=== PATIENT | male | born 1965 | race Caucasian/White ===

== ENCOUNTER 2021-02-16 18:24 | Emergency (ER) | payer OTHER, SELFPAY ==
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
[2021-02-16 18:28] VITALS: BP 130/90; PULSE 73; RESP 16; TEMP 36.6; O2SAT 98; BMI 27.3
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
[2021-02-16 19:01] VITALS: PULSE 69; RESP 25; O2SAT 96
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
[2021-02-16 19:22] LABS: MANUAL DIFF FLAG NO
[2021-02-16] MEDS: dexAMETHasone sod phosphate 10 MG/ML VIAL IVPUSH (19:22)
[2021-02-16] MEDS: Diphth,Pertus(ACell),Tet Adult 0.5 ML SYRINGE IM (19:22)
[2021-02-16] MEDS: Morphine Sulfate 4 MG/ML CARTRIDGE IVPUSH (19:23)
[2021-02-16] MEDS: Ketorolac Tromethamine 15 MG/ML VIAL IVPUSH (19:23)
[2021-02-16 19:25] LABS: Basophils Percent Auto 0.2 % (0-2); Eosinophils Absolute Auto 0.2 X10*3/uL (0.0-0.4); Eosinophils Percent Auto 0.9 % (0-4); Hematocrit 45.4 % (42-52); Hemoglobin 15.8 g/dl (14.0-18.0); Imm Gran Abs Auto 0.26 X10*3/uL (0.00-0.03); Imm Gran Pct Auto 1.5 % (0.0-0.4); Lymphocytes Absolute Auto 2.7 X10*3/uL (1.2-4.9); Lymphocytes Percent Auto 14.9 % (20-40); Mean Corpuscular HGB Conc 34.8 g/dl (31.0-36.0); Mean Corpuscular Hemoglobin 32.2 pg (27.0-33.0); Mean Corpuscular Volume 92.7 fL (80-98); Mean Platelet Volume 9.3 fL (9.4-12.4); Monocytes Percent Auto 5.5 % (2-11); Neutrophils Absolute Auto 13.7 X10*3/uL (2.0-8.3); Platelet Count 332 X10*3/uL (160-400); Red Cell Distribution Width 12.6 % (11.0-16.0); White Blood Count 17.7 X10*3/uL (4.8-10.8)
[2021-02-16 19:39] LABS: Anion Gap 16 (12-20); Blood Urea Nitrogen 8 mg/dL (9-16); Carbon Dioxide 21 mmol/L (22-29); Chloride 101 mmol/L (96-108); Creatinine Clr Calc Pharmacy 99.1; Estimated Glomerular Filt Rate > 60; Glucose Random 111 mg/dL (60-115); Sodium 134 mmol/L (135-145)
[2021-02-16 19:44] LABS: Troponin-I High Sensitivity < 3.5 ng/L (<3.5-35.0)
[2021-02-16 21:00] VITALS: RESP 18; O2SAT 97
[2021-02-16] MEDS: Morphine Sulfate ER 15 MG TABLET.ER PO (21:31)
== END 2021-02-16 21:51 | disposition home or self-care (01) ==
PROVIDERS: Emergency Provider Student in an Organized Health Care Education/Training Program; PCP Internal Medicine
DX: S39.92XA Unspecified injury of lower back, initial encounter (principal); S22.079A Unspecified fracture of T9-T10 vertebra, initial encounter for closed fracture; S22.049A Unspecified fracture of fourth thoracic vertebra, initial encounter for closed fracture; G44.309 Post-traumatic headache, unspecified, not intractable; M54.2 Cervicalgia; V29.40XA Motorcycle driver injured in collision with unspecified motor vehicles in traffic accident, initial encounter; Y93.9 Activity, unspecified; Y92.410 Unspecified street and highway as the place of occurrence of the external cause; Y99.9 Unspecified external cause status; Z79.899 Other long term (current) drug therapy
CPT/HCPCS: 36415; 70450; 71045; 72125; 72128; 72131; 80048; 84484; 85025; 90471; 90715; 93005; 96374; 96375; 99284; J1100; J1885; J2270

== ENCOUNTER 2024-08-21 08:26 | Outpatient (AMB) | payer OTHER, SELFPAY ==
--- OUTSIDE RECORDS SUMMARY | 2024-08-21 08:54 | XMS_ITS | Clinical Summary ---
Author Organization [facility] Address [address] [place] [address] Care Team Providers Care Film Writer Name Role Phone Unavailable Primary Care Provider Unavailabl e Social History Tobacco Use Types Packs/Day Years Used Date Smoking Tobacco: Never Assessed Sex and Gender Information Value Date Recorded Sex Assigned at Not on file Gender Identity Not on file Sexual Orientation Not on file Plan of Treatment Health Maintenance Due Date Last Done Comments Hepatitis C Virus Screening 1965 HIV Screening 11/15/1976 DTaP/Tdap/Td Vaccines (1 - Tdap) 11/15/1982 Pneumococcal Vaccines 50+ (1 of 1 - PCV) 11/15/2013 Zoster (Shingles) Vaccine (1 of 2) 11/15/2013 COVID-19 Vaccine ( - 2023-2 5 season) 2024 RSV Vaccine 60 years and old er and Patients (1 - 1-dose 75+ series) 11/15/2038 Hepatitis B Vaccines Aged Out No long er eligible based on patient's age to complete this topic Pneumococcal Vaccine: Pediat melchor (0-5 Years) and At-Risk Patients (6 to 49 Years) Aged Out No longer eligible b ased on patient's age to complete this topic
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
[2024-08-21 09:05] VITALS: BP 150/92; PULSE 66; TEMP 36.3; O2SAT 97; BMI 28.8
== END 2024-08-21 09:49 | disposition home or self-care (01) ==
LOC: HO.HMCH 08:26
PROVIDERS: PCP Internal Medicine
DX: Z72.0 Tobacco use (principal); I10 Essential (primary) hypertension; Z13.220 Encounter for screening for lipoid disorders; S91.302A Unspecified open wound, left foot, initial encounter; Z13.1 Encounter for screening for diabetes mellitus

== ENCOUNTER 2024-08-21 08:26 | Outpatient (REF) | payer OTHER, SELFPAY ==
--- NOTE | ~2024-08-21 | XR_ITS ---
EXAMINATION: XR FOOT 1-2 VIEWS LEFT HISTORY: S91.302A - Unspecified open wound, left foot, initial encounter COMPARISON: Comparison is made with the prior examination dated 03/16/2014. FINDINGS: Three views of the left foot are submitted. The bones are osteopenic. The patient is again noted to be status post internal fixation of the 1st metatarsal shaft. Additional screws are seen across the 1st and 2nd tarsometatarsal joints. There is a soft tissue defect overlying the calcaneus. Multiple lucencies are noted in the posterior calcaneus suggestive of osteomyelitis. However, these findings were also present on the prior study. There is moderate degenerative change of the MTP joints. XR/XR foot LT 2V IMPRESSION: Soft tissue defect overlying the calcaneus. Multiple lucencies in the posterior calcaneus suggestive of osteomyelitis. As these findings were also present on the prior study, it is difficult to determine whether this represents an acute or chronic process. Electronically signed by: Brent Ferreira MD 08/21/2024 10:55 AM EDT
--- OUTSIDE RECORDS SUMMARY | 2024-08-21 12:47 | XMS_ITS | Clinical Summary ---
Author Organization [facility] ity Address [address] [place] [address] Care Team Providers Care Mail Deliverer Name Role Phone Unavailable Primary Care Provider Unavailabl e Social History Tobacco Use Types Packs/Day Years Used Date Smoking Tobacco: Never Assessed Sex and Gender Information Value Date Recorded Sex Assigned at Not on file Legal Sex Male 3:26 PM EST Gender Identity Not on file Sexual Orientation Not on file Plan of Treatment Health Maintenance Due Date Last Done Comments DTaP,Tdap,and Td Vaccines (1 - Tdap) 11/15/1982 Pneumococcal Vaccine: 50+ Ye ars (1 of 1 - PCV) 11/15/2013 Zoster Vaccines (1 of 2) 11/15/2013 COVID-19 Vaccine (1 - 2023-2 5 season) 2024 Influenza Vaccine (#1) 2024 RSV Immunization Patients 60 + Years Old (1 - 1-dose 75+ series) 11/15/2038 HIB Vaccines Aged Out No longer eligi ble based on patient's age to complete this topic HPV Vaccines Aged Out No longer eligi ble based on patient's age to complete this topic Hepatitis A Vaccines Aged Out No long er eligible based on patient's age to complete this topic Hepatitis B Vaccines Aged Out No long er eligible based on patient's age to complete this topic IPV Vaccines Aged Out No longer eligi ble based on patient's age to complete this topic MMR Vaccines Aged Out No longer eligi ble based on patient's age to complete this topic Meningococcal ACWY Vaccine Aged Out N o longer eligible based on patient's age to complete this topic Meningococcal B Vacine Aged Out No lo nger eligible based on patient's age to complete this topic Pneumococcal Vaccine: Pediat rics (0 to 5 Years) and At-Risk Patients (6 to 64 Years) Aged Out No longer eligible b ased on patient's age to complete this topic RSV Immunization Patients Un hortensia 20 months Aged Out No longer eligible b ased on patient's age to complete this topic Varicella Vaccines Aged Out No longer eligible based on patient's age to complete this topic
--- OUTSIDE RECORDS SUMMARY | 2024-08-21 12:47 | XMS_ITS | Clinical Summary ---
Author Organization [facility] Address [address] [place] [address] Care Team Providers Care C Unix Developer Name Role Phone Unavailable Primary Care Provider [...]
== END 2024-08-21 08:27 | disposition home or self-care (01) ==
LOC: HO.XRAY 08:26
PROVIDERS: PCP Internal Medicine
DX: S91.302A Unspecified open wound, left foot, initial encounter (principal); I10 Essential (primary) hypertension; Z72.0 Tobacco use
CPT/HCPCS: 73620

== ENCOUNTER → 2024-08-21 10:12 | Outpatient (BNV) | payer OTHER, SELFPAY | PROVIDERS: PCP Internal Medicine; Visit Provider Radiology Diagnostic Radiology | DX: M86.172 Other acute osteomyelitis, left ankle and foot (principal) | CPT/HCPCS: 73620 ==

== ENCOUNTER 2024-08-22 10:58 | Outpatient (REF) | payer OTHER, SELFPAY ==
[2024-08-22 11:24] LABS: MANUAL DIFF FLAG NO
[2024-08-22 12:09] LABS: Basophils Percent Auto 0.4 % (0-2); Eosinophils Absolute Auto 0.2 X10*3/uL (0.0-0.4); Eosinophils Percent Auto 1.4 % (0-4); Hematocrit 45.9 % (42.0-52.0); Hemoglobin 15.9 g/dl (14.0-18.0); Imm Gran Abs Auto 0.06 X10*3/uL (0.00-0.03); Imm Gran Pct Auto 0.6 % (0.0-0.4); Lymphocytes Absolute Auto 2.6 X10*3/uL (1.2-4.9); Lymphocytes Percent Auto 24.4 % (20-40); Mean Corpuscular HGB Conc 34.6 g/dl (31.0-36.0); Mean Corpuscular Hemoglobin 31.4 pg (27.0-33.0); Mean Corpuscular Volume 90.5 fL (80.0-98.0); Mean Platelet Volume 9.5 fL (9.4-12.4); Monocytes Absolute Auto 0.8 X10*3/uL (0.1-1.2); Monocytes Percent Auto 7.6 % (2-11); Neutrophils Percent Auto 65.6 % (45-73); Platelet Count 423 X10*3/uL (160-400); Red Blood Count 5.07 X10*6/uL (4.60-5.80); Red Cell Distribution Width 12.8 % (11.0-16.0); White Blood Count 10.6 X10*3/uL (4.8-10.8)
[2024-08-22 12:15] LABS: Estimated Average Glucose 105 mg/dL; Hemoglobin A1c % 5.3 % (<6.0)
[2024-08-22 12:54] LABS: Alanine Aminotransferase 17 U/L (0-40); Albumin Level 4.2 g/dL (3.5-5.0); Alkaline Phosphatase 79 U/L (39-117); Anion Gap 10 (12-20); Aspartate Amino Transferase 22 U/L (5-37); Bilirubin Total 0.4 mg/dL (0.0-1.0); Blood Urea Nitrogen 12 mg/dL (9-16); Calcium 9.4 mg/dL (8.4-10.2); Carbon Dioxide 26 mmol/L (22-29); Chloride 105 mmol/L (96-108); Cholesterol 207 mg/dL (<200); Estimated Glomerular Filt Rate > 60; Glucose Random 100 mg/dL (60-115); HDL Cholesterol 86 mg/dL (>40); LDL Cholesterol Calculated 109 mg/dL (<100); Potassium 3.9 mmol/L (3.3-5.1); Sodium 137 mmol/L (135-145); Total Protein 8.1 g/dL (6.5-8.0); Triglycerides 64 mg/dL (<150)
[2024-08-22 13:00] LABS: Free T4 (Free Thyroxine) 0.95 ng/dL (0.71-1.85); TSH reflex Free T4 1.54 uIU/mL (0.32-4.0); Vitamin D 25-OH Total 10.8 ng/mL (>30)
[2024-08-22 13:12] LABS: Folate 6.1 ng/mL (> or = 4.0); Vitamin B12 814 pg/mL (200-900)
== END 2024-08-22 10:59 | disposition home or self-care (01) ==
LOC: HO.LAB 10:58
DX: Z00.00 Encounter for general adult medical examination without abnormal findings (principal); Z13.220 Encounter for screening for lipoid disorders; Z13.1 Encounter for screening for diabetes mellitus; Z13.6 Encounter for screening for cardiovascular disorders
CPT/HCPCS: 36415; 80053; 80061; 82306; 82607; 82746; 83036; 84439; 84443; 85025

== ENCOUNTER 2024-08-25 14:45 | Outpatient (AMB) | payer OTHER, SELFPAY ==
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
[2024-08-25 15:06] VITALS: BP 146/83; PULSE 82; TEMP 36.9; O2SAT 96; BMI 30.1
--- OUTSIDE RECORDS SUMMARY | 2024-08-25 16:40 | XMS_ITS | Clinical Summary ---
Author Organization [facility] Address [address] [place] [address] Care Team Providers Care Supervisor Accounting Clerks Name Role Phone Unavailable Primary Care Provider [...]
--- OUTSIDE RECORDS SUMMARY | 2024-08-25 16:40 | XMS_ITS | Clinical Summary ---
Author Organization [facility] ity Address [address] [place] [address] Care Team Providers Care Window Shade Cutter And Mounter Name Role Phone Unavailable Primary Care Provider [...]
== END 2024-08-25 15:36 | disposition home or self-care (01) ==
LOC: HO.HID 14:46
PROVIDERS: Visit Provider Internal Medicine
DX: M86.60 Other chronic osteomyelitis, unspecified site (principal); S91.302A Unspecified open wound, left foot, initial encounter
CPT/HCPCS: 99204

== ENCOUNTER → 2024-08-25 14:45 | Outpatient (BNVA) | payer OTHER, SELFPAY | PROVIDERS: Visit Provider Internal Medicine ==

== ENCOUNTER 2024-09-04 15:19 | Outpatient (AMB) | payer OTHER, SELFPAY ==
--- NOTE | 2024-09-04 15:21 | A.OFFPC_ITS ---
Vital Signs 3 09/04/24 15:22 09/04/24 15:51 Height 5 ft 5 in Weight 178 lb 3.2 oz BMI 29.7 BP 142/84 H 130/82 Blood Pressure Location Lt brachial Lt brachial Position Sitting Sitting Respiration 16 Pulse 71 Pulse Source Pulse Oximeter Temp 97.3 F Temp Source Temporal Artery Scan Pulse Oximetry (%) 98 Oxygen Delivery Method Room Air Intake Visit Reasons: f/u foot infection Private Duty Rn Required: No Accompanied by: Self / Same As Patient Allergies No Known Allergies [No Known Allergies*] Allergy (Verified 09/04/24 15:22) Medication List - Last Reconciled 09/04/24 by Marian Vang PA-C doxycycline hyclate 100 mg PO BID 30 days losartan 25 mg PO DAILY Tobacco use date assessed: 09/04/24 Dental Screening Dental Screen Date: 09/04/24 Did you have a dental visit in the last 12 months?: No Did you have a dental problem in the last 6 months where you did not have access to dental care?: No Was dental information given to patient?: No HPI f/u foot infection 2 HPI0 Details 58-year-old male with past medical histo ry of tobacco abuse, hypertension and chronic osteomyelitis last seen 07/2024 coming in for follow up on foot wound. Patient was seen by [facility] Infectious Disease for 05/2024 advised to continue on doxycycline indefinitely and follow up with Orthopedics to consider amputation. Presenting with osteomyelitis. Osteomyelitis is ongoing, confirmed to be present, and causing continued complications, potentially requiring surgical intervention, such as orthopedic or general surgery consultation. Antibiotics were previously administered, leading to some improvement in the infection symptoms but continuous concern about underlying bone infection persists. The patient expressed concern about effectively managing blood pressure in the context of the current health setting, noting a current plan requiring medication refills. 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 Cognitive needs: No Hearing needs: No Vision needs: Yes (Glasses) Questionnaire Thrive Questionnaire Date Thrive assessed: 09/04/24 I am a: Patient What is your living situation today?: I have a steady place to live Within the past 12 months, did the food you bought not last and you didn't have the money to get more?: Never true Within the past 12 months, did you worry whether your food would run out before you got money to buy more?: Never true Do you have trouble paying for medicines?: No Do you have trouble getting transportation to medical appointments?: No Do you have trouble paying your heating and electricity bill?: No Do you have trouble taking care of your child, family member or friend?: No Do you have trouble with day-to-day activities such as bathing, preparing meals, shopping, managing finances, etc.?: No Are you currently unemployed and looking for a job?: No Are you interested in more education?: No Please select the resources that you would like help with: None Currently or been in a relationship where the following occur: No concerns reported THRIVE Score: 0 AUDIT C Alcohol Use Questionnaire (AUDIT-C) 1. How often do you have a drink containing alcohol?: 2-3 times a week 2. How many drinks containing alcohol do you have on a typical day when you are drinking?: 1 or 2 3. How often do you have six or more drinks on one occasion?: Less than monthly Total Score: 4 Score Reviewed/Action Taken: Yes JOLIE-7 AMB Questionnaire JOLIE-7 Date JOILE - 7 assessed: 08/21/24 Source: Developed by Drs. Brent Garcia, Amaya Maddox, Diogenes Ely and colleagues, with an educational destiny from [employer]. Review of Systems Const Denies body aches, Denies chills, Denies fever(s), Denies headache(s) and Denies poor appetite Eyes Reports no additional complaints ENT Denies dizziness and Denies headache(s) Card Denies chest pain and Denies dyspnea Resp Denies cough and Denies dyspnea GI Denies diarrhea, Denies nausea and Denies vomiting Reports no additional complaints Musc Details: heel pain has been improving Reports no additional complaints and Denies abnormal gait Skin/Breast Reports system reviewed and no additional complaints, except as documented Neuro Denies abnormal gait, Denies dizziness and Denies headache(s) Psych Reports no additional complaints Physical exam (Primary Care) Vital Signs: Last Vital Signs Temp 97.3 F 09/04/24 15:22 Pulse 71 09/04/24 15:22 Resp 16 09/04/24 15:22 BP 130/82 09/04/24 15:51 Pulse Ox 98 09/04/24 15:22 Oxygen Delivery Method Room Air 09/04/24 15:22 BMI result Body Mass Index 29.7 Tobacco/Smoking Status: Tobacco use Status Tobacco use date assessed 09/04/24 09/04/24 15:23 Patient Tobacco Use Status Current everyday Tobacco 09/04/24 15:23 Tobacco use type Cigarette 09/04/24 15:23 e-Cigarette/Vaping Use Never Used 09/04/24 15:23 Thrive Assessment: Date of Thrive Assessment Date Thrive assessed 09/04/24 09/04/24 15:29 Currently or been in a relationship where the following occur: No concerns reported Const General: cooperative, healthy appearing, comfortable and no acute distress Orientation/consciousness: patient oriented x3 HENMT Head: Yes normocephalic Ears: hearing grossly normal bilaterally General nose exam: Normal external nose present Eyes General: appearance normal, both eyes and all related structures Conjunctivae: conjunctivae normal Neck Neck: Yes full ROM and Yes no lymphadenopathy Resp Effort & Inspection: normal respiratory effort Auscultation: clear to auscultation bilaterally, no crackles, no rales, no rhonchi and no wheezes Cardio Rate: regular rate Rhythm: regular rhythm Skin Other: General skin exam: no rashes or lesions noted Neuro General: patient oriented x3 Gait exam (Neuro): Normal gait present Extrem General: Yes normal to inspection, Yes full ROM and No edema Psych Affect: normal affect Attitude: cooperative Insight: Good insight present (Psych) Judgement: Good judgement present (Psych) Coding Level of Care Code Est Pt Level 3 (69054) Diagnoses Chronic osteomyelitis M86.60 Hypertension I10 Assessment & Plan Assessment & Plan (1) Chronic osteomyelitis: Comment: He has chronic OM for many years, MSSA found Code(s): M86.60 - Other chronic osteomyelitis, unspecified site Category: Medical Plan: Patient was seen by infectious disease and was continued on Doxycycline indefinitely and advised orthopedic referral. I reached out to ortho who felt general surgery would be more appropriate. Referral was placed to general surgery today for evaluation and treatment. Patient has been seeing improvement in his pain and I advised patient to still have consultation as the root of the problem would not be treated by Doxycycline alone. Patient agrees to follow up with surgery. (2) Hypertension: Comment: restricted DOT Code(s): I10 - Essential (primary) hypertension Category: Medical Plan: Continue on current blood pressure medication. Avoid salt intake and encourage healthy diet and regular exercise. Blood pressure significantly improved continue on the losartan at this time Plan The focus is on managing osteomyelitis and optimizing blood pressure control. The importance of surgical consultation and intervention for osteomyelitis was stressed as antibiotics alone may not suffice. Proper referral to general or orthopedic surgery was discussed for potential surgical debridement of infected bone tissue, which could improve long-term outcomes and prevent recurrence. For hypertension, medication adjustments were considered, with close monitoring suggested to determine efficacy. The patient is advised to regularly check blood pressure at home to inform future treatment adjustments. Follow-up consultations will help maintain optimal control and address any issues promptly. This note was constructed using voice recognition software. While every effort has been made to ensure accuracy and piledriver carpenter, still areas may have been included sometimes these areas may affect the content or meeting of the given symptoms. Total time spent caring for the patient today was 20 minutes. This includes time spent before the visit reviewing the chart, time spent during the visit, and time spent after the visit and documentation. Patient was informed and verbally consented to the use of an ambient scribe for clinic note documentation during this visit. Orders: Referrals 2 General Surgery Referral M86.60 - Other chronic osteomyelitis, unspecified site Medications: Refilled 2 losartan 25 mg PO DAILY 90 tabs 3RF
[2024-09-04 15:22] VITALS: BP 142/84; PULSE 71; RESP 16; TEMP 36.3; O2SAT 98; BMI 29.7
[2024-09-04 15:51] VITALS: BP 130/82
--- OUTSIDE RECORDS SUMMARY | 2024-09-04 17:42 | XMS_ITS | Clinical Summary ---
Author Organization [facility] it[facility] Address [address] [place] [address] Care Team Providers Care Pci Security Consultant Name Role Phone Unavailable Primary Care Provider [...] Vaccines (1 of 2) 11/15/2013 COVID-19 Vaccine ( - 2023-2 5 season) 2024 Influenza Vaccine (Season Ended) 2025 RSV Immunization Adult Patie nts (1 - 1-dose 75+ series) 11/15/2038 HIB [...] age to complete this topic Meningococcal B Vaccine Aged Out No l onger eligible based on patient's age to complete [...]
--- OUTSIDE RECORDS SUMMARY | 2024-09-04 17:42 | XMS_ITS | Clinical Summary ---
Author Organization [facility] Address [address] [place] [address] Care Team Providers Care Hoof Trimmer Name Role Phone Unavailable Primary Care Provider [...]
== END 2024-09-04 15:54 | disposition home or self-care (01) ==
LOC: HO.HMCH 15:20
DX: M86.60 Other chronic osteomyelitis, unspecified site (principal); I10 Essential (primary) hypertension

== ENCOUNTER 2024-09-08 14:38 | Outpatient (AMB) | payer OTHER, SELFPAY ==
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
[2024-09-08 14:53] VITALS: BP 158/73; PULSE 67; BMI 28.4
--- OUTSIDE RECORDS SUMMARY | 2024-09-08 17:08 | XMS_ITS | Clinical Summary ---
Author Organization [facility] Address [address] [place] [address] Care Team Providers Care Brusher Operator Name Role Phone Unavailable Primary Care Provider [...]
--- OUTSIDE RECORDS SUMMARY | 2024-09-08 17:08 | XMS_ITS | Clinical Summary ---
Author Organization [facility] ity Address [address] [place] [address] Care Team Providers Care Quality Assurance Project Manager Name Role Phone Unavailable Primary Care Provider [...]
== END 2024-09-08 15:08 | disposition home or self-care (01) ==
LOC: HO.HGS 14:38
PROVIDERS: Visit Provider Surgery
DX: M86.60 Other chronic osteomyelitis, unspecified site (principal)
CPT/HCPCS: 99203

== ENCOUNTER → 2024-09-08 14:38 | Outpatient (BNVA) | payer OTHER, SELFPAY | PROVIDERS: Visit Provider Surgery ==

== ENCOUNTER 2024-09-13 07:43 | Outpatient (REF) | payer OTHER, SELFPAY ==
--- NOTE | ~2024-09-13 | XR_ITS ---
EXAMINATION: XR TIBIA AND FIBULA, LEFT CLINICAL INFORMATION: Chronic osteomyelitis of unspecified site. Check for hardware in the tibia. COMPARISON: 08/21/2024 left foot radiographs. TECHNIQUE: AP and lateral views of the left tibia and fibula were obtained. FINDINGS: There are old screw tracts present within the proximal, mid, and distal tibia, from old fixation hardware. Healed fractures of the mid diaphyses of the fibula and tibia, with abundant periosteal new bone formation bridging the fracture gaps. No permeative bone change evident proximally or in the mid aspect of the fracture levels. There is a soft tissue defect in the dorsal calcaneus, without definite permeative changes of the calcaneus, although this is incompletely imaged in this region. Soft tissue emphysema does not extend more cephalad. XR/XR tibia fibula LT 2V IMPRESSION: 1. Soft tissue defect in the dorsal calcaneus, without definite permeative changes of the calcaneus on this single lateral view. 2. More proximally, no suspicious permeative bone changes. Old hardware tracts in the tibia. 3. Healed fractures of the mid tibial and fibular diaphyses. Electronically signed by: Blayne Hammond MD 09/16/2024 09:27 AM EDT
== END 2024-09-13 07:44 | disposition home or self-care (01) ==
LOC: HO.XRAY 07:43
PROVIDERS: Visit Provider Surgery
DX: Z98.890 Other specified postprocedural states (principal); M86.60 Other chronic osteomyelitis, unspecified site
CPT/HCPCS: 73590

== ENCOUNTER → 2024-09-13 07:51 | Outpatient (BNV) | payer OTHER, SELFPAY | PROVIDERS: Visit Provider Radiology Diagnostic Radiology | DX: M79.89 Other specified soft tissue disorders (principal) | CPT/HCPCS: 73590 ==

== ENCOUNTER 2024-10-14 09:53 | Inpatient (IN) | payer OTHER, SELFPAY ==
--- OUTSIDE RECORDS SUMMARY | 2024-09-12 12:28 | XMS_ITS | Clinical Summary ---
Author Organization [facility] Address [address] [place] [address] Care Team Providers Care Professor Of Religious Studies Name Role Phone Unavailable Primary Care Provider Unavailabl e Social History Tobacco Use Types Packs/Day Years Used Date Smoking Tobacco: Never Assessed Sex and Gender Information Value Date Recorded Sex Assigned at Not on file Legal Sex Male 3:25 PM EDT Gender Identity Not on file Sexual Orientation [...]
--- OUTSIDE RECORDS SUMMARY | 2024-09-12 12:28 | XMS_ITS | Clinical Summary ---
Author Organization [facility] ity Address [address] [place] [address] Care Team Providers Care Development Expert Name Role Phone Unavailable Primary Care Provider [...]
[2024-10-10 12:20] VITALS: BMI 28.3
--- NOTE | 2024-10-10 13:49 | HO.ANESPROP2 ---
Documented by User: Brenda Callahan NP 10/13/24 11:47 HPI - Anesthesia Eval Consult details Narrative: 58yo M for Left Leg Amputation Below Knee -Osteomyelitis Smoker Daily ETOH PMFSH Active Problems Active Problems: All Active Problems Chronic osteomyelitis (Acute) Screening for diabetes mellitus (Acute) Wound of left foot (Acute) Screening for hypercholesterolemia (Acute) Hypertension (Acute) Tobacco abuse (Acute) Past Medical History Medical History Compression fracture of body of thoracic vertebra Brain aneurysm Surgical History Surgical History History of foot surgery Social History Social History Housing: Apartment Are you a primary medicare nurse to a significant other at home: No Do you presently have visiting nurse or other home services: No Alcohol intake: current Alcohol intake frequency: 0-2 drinks per day Patient Tobacco Use Status: Current everyday Tobacco user Tobacco use type: Cigarette Cigarette Packs Per Day: 0.5 Cigarettes Per Day: 10 Years Smoked: 40 years e-Cigarette/Vaping Use: Never Used Patient Interested in Nicotine Replacement: No Second Hand Smoke Exposure: Yes Use of substances other than those prescribed or required for medical reasons: Yes Substance Use Frequency: Daily Have you been hit, kicked, punched, or otherwise hurt by someone within the past year? 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 No acute intracranial pathology. 2. No CT evidence of acute cervical spine fracture or traumatic subluxation Assessment and Plan Assessment Anesthesia Assessment: Chart Reviewed Documented by User: Jace Solis MD 10/14/24 09:57 PMFSH Past Medical History Medical History Compression fracture of body of thoracic vertebra Brain aneurysm Family History Family history of problems with anesthesia: No Surgical History Surgical History History of foot surgery History of Problems with Anesthesia: No Social History Social History Housing: Apartment Are you a primary medicare nurse to a significant other at home: No Do you presently have visiting nurse or other home services: No Alcohol intake: current Alcohol intake frequency: 0-2 drinks per day Patient Tobacco Use Status: Current everyday Tobacco user Tobacco use type: Cigarette Cigarette Packs Per Day: 0.5 Cigarettes Per Day: 10 Years Smoked: 40 years e-Cigarette/Vaping Use: Never Used Patient Interested in Nicotine Replacement: No Second Hand Smoke Exposure: Yes Use of substances other than those prescribed or required for medical reasons: Yes Substance Use Frequency: Daily Have you been hit, kicked, punched, or otherwise hurt by someone within the past year? 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 Cognitive needs: No Hearing needs: No Vision needs: Yes (Glasses) Meds Allergies Allergy/AdvReac Type Severity Reaction Status Date / Time No Known Allergies Allergy Verified 10/14/24 08:41 [No Known Allergies*] Exam Airway Mallampati Class: III TM Dist: >3cm Neck ROM: Full Loose/Missing/Broken Teeth: Yes, Upper and Lower Assessment and Plan Assessment Anesthesia Assessment: Anesthesia Plan Discussed Final Anesthetic Review Family History of Problems with Anesthesia: No History of Problems with Anesthesia: No NPO: Yes ASA Class: III Final Preanesthetic Review: No Changes in Pt Med Stat, Meds/Allgs Chart Reviewed, Consent Obtained/Reviewed and Anes Risks/Benef Reviewed Patient Risk: Intermediate Procedure Risk: Intermediate Anesthetic Plan Anesthetic Plan: Spinal Disposition: Standard PACU
[2024-10-14] VITALS (13 sets, daily range): BP systolic 103–182; BP diastolic 57–92; PULSE 54–73; RESP 10–18; TEMP 36.4–37.1; O2SAT 95–98; BMI 26.8; BMI 29.3
[2024-10-14] MEDS: Lactated Ringers 1,000 ML 100 ML IVCONT ×2 (09:17→14:07)
--- NOTE | 2024-10-14 09:54 | MHC.SHP ---
Pre-Procedural Eval Section A - 24 Hr Update-Section A only Date of Service: 10/14/24 Section B - Complete if H&P > 30 days Chief Complaint: Other chronic osteomyelitis, unspecified site Details of Present Illness: Has had chronic osteomyelitis of the left heel, with pain, now wants to proceed with BKA Relevant Family History (Specify if Yes): No Relevant Social History: Tobacco Use Present Medications: see Short Stay Collaborative assessment Medical History: Significant History (Hypertension, smoking) History of Previous Operations: Relevant previous surgery/procedure and date(s) (Has a previous trauma to the left lower leg with fixation) Allergies: Allergies Allergy/AdvReac Type Severity Reaction Status Date / Time No Known Allergies Allergy Verified 10/14/24 08:41 [No Known Allergies*] Review of Systems Sugical H&P ROS: Negative: Constitution, Cardiovascular and Respiratory Exam Surgical H&P Exam: Normal: Lungs and Normal: Abdomen and Significant Findings: Extremities (Deep ulcer left heel) Plan Diagnosis/Plan: Unchanged I have reviewed the history and physical and performed a pertinent physical examination on my patient. No changes have occurred unless specified. Time Spent With Patient Time: Total time managing care of this patient today ____ minutes.
[2024-10-14] MEDS: ceFAZolin Sodium/Dextrose,Iso 2 GM/50 ML PIGGYBACK IV (10:25)
--- NOTE | 2024-10-14 12:27 | P.OP_ITS ---
Operative Note Operative Note Date of Service: 10/14/24 Narrative: Preop diagnosis: Chronic osteomyelitis, left calcaneus Postop diagnosis: The same, with note of severe calcifications and fibrosis of the left calf muscles from previous trauma Procedure: Below-knee amputation, left leg Surgeon: Ramesh Barry MD junior sales assistant: ALFREDO Reynolds The patient is a 58-year-old male with chronic osteomyelitis of the left heel for 30 years after, to the left leg with multiple fractures and placement of hardware. He now has decided to proceed with BKA in view of his chronic infection with pain. He understood the technique of BKA as well as the risks, benefits, and alternatives She was brought to the operating room. He was placed supine under anesthesia care. Spinal anesthesia was administered earlier by the anesthesiologist The left leg was prepped and draped in the usual sterile fashion. Surgical time-out was done. The patient received cefazolin 2 g IV preoperatively.. I clarissa lines on the left leg for the incision based on the standard Harris flap. I made the incision in the skin with a blade 10. This was carried down through the full-thickness of the subcutaneous fat. I then proceeded to divide the surrounding the tibia until was able define the tibia completely. He had divided muscles laterally as well to try to look for the bulla. There was note of severe calcifications of the muscle surrounding the tibia and the fibula along with severe fibrosis. We therefore had difficulty exposing the fibula so decided to divide the tibia first in a beveled fashion using the bone saw. This was done making sure that this was shorter than the skin flap anteriorly. At this point, the tourniquet was activated. Once I was able to divide the tibia, I divided the rest of the surrounding muscles to try to expose the fibula. We ligated visible vessels as we proceeded with this dissection although with a severe fibrosis and calcification, we were actually unable to clearly define all 3 distal vessels in the area. I therefore continued to div kymberly visible muscles until was able to clearly define the fibula. I divided the fibula using the bone so as well. I then trimmed this to make this shorter than the tibia by about 1 cm I proceeded to continue excision of the muscle surrounding the tibia and the fibula. I then was able to identify the gastrocnemius. I the gastrocnemius from the rest of the muscles with blunt dissection in view of the presence of good planes. Once the gastrocnemius was complete as a flap, I divided the rest of the muscles outside of the gastrocnemius to complete transection of the leg below the knee. This was sent as a specimen I then used the bone file to there were no sharp edges on the divided tibia and the fibula. I then released the tourniquet to identify any vessels that were not ligated. I applied clamps and ligated all visible vessels and cauterized oozing areas of the muscle. Eventually, we are able to achieve good hemostasis. I copiously irrigated I applied bone wax to the divided surface of the tibia and the fibula Once hemostasis was confirmed, I then proceeded to close the incision by placing the gastrocnemius flap over the bone. It was noted that the gastrocnemius muscle was thin relatively in view of the patient's habitus. I applied multiple sutures with Polysorb 2-0 through the fascia on both sides to apposed the flap anteriorly covered the entire stump. We trimmed the up to make sure that there were no excess skin I closed the skin with full-thickness nylon 3-0 simple interrupted sutures Thick protective dressings, a Kerlix roll and Florencio bandage were then applied The procedure was then completed The patient tolerated procedure well. There were no immediate complications. Initial and final counts of sponges and instruments were correct. Estimated blood loss was about 150 cc. The patient was then transferred to the recovery room with stable vital signs.
--- NOTE | 2024-10-14 13:41 | PC.NURSE ---
Pt to the unit at this time, A&Ox3, neuro wnl, lungs clear, no resp distress, no c/o n/v. Dressing CDI.
[2024-10-14] MEDS: 0.9 % Sodium Chloride Flush 3 ML SYRINGE IVFLUSH ×2 (13:51→23:55)
[2024-10-14] MEDS: HYDROmorphone HCl 0.5 MG/0.5 ML SYRINGE IVPUSH ×4 (13:51→23:53)
[2024-10-14] MEDS: Acetaminophen 1,000 MG/100 ML PIGGYBACK 400 MG IV ×2 (14:40→20:06)
--- NOTE | 2024-10-14 14:54 | PHA.MEDREC ---
Addendum entered by Gricelda Page RPh 10/14/24 15:10: Med rec was reviewed by [facility]. Original Note: Pharmacy Consult ? Medication Reconciliation Pharmacy has reviewed the medication reconciliation done by nursing. Claims match med rec.
--- NOTE | 2024-10-14 14:59 | PM.EVENT ---
Event Note Date of Service: 10/14/24 Event Note: Seen on afternoon rounds postop Underwent BKA of the left this morning Complains of pain Stable vital signs Dressings dry We will add Toradol to pain regimen Discussed with nursing staff Time Spent With Patient Time: Total time managing care of this patient today ____ minutes.
[2024-10-14] MEDS: Ketorolac Tromethamine 15 MG/ML VIAL IVPUSH (15:07)
[2024-10-14] MEDS: oxyCODONE HCl Immed Release 5 MG TABLET 10 MG PO (15:41)
[2024-10-14] MEDS: Ketorolac Tromethamine 15 MG/ML VIAL 30 MG IVPUSH (20:06)
[2024-10-14] MEDS: Docusate Sodium 100 MG CAPSULE PO (20:06)
[2024-10-14] MEDS: Doxycycline Monohydrate 100 MG CAPSULE PO (20:06)
--- NOTE | 2024-10-15 01:22 | PM.EVENT ---
Documented by User: Maria De Jesus Harley PA-C 10/15/24 01:23 Event Note Date of Service: 10/15/24 Event Note: Consult placed for post-op hypertension for patient. Blood pressure better controlled now, previous elevated BPs were likely secondary to pain. Continue to monitor blood pressure, re-consult if elevated blood pressures returned. Continue losartan 25 mg daily. Thank you for allowing me to participate in the pt's care. Signing off for now. Please contact the medical team if any questions or concerns. Time Spent With Patient Time: Total time managing care of this patient today ____ minutes. Documented by User: Masha Nicholas MD 10/15/24 01:38 Event Note Date of Service: 10/15/24
[2024-10-15] MEDS: Acetaminophen 1,000 MG/100 ML PIGGYBACK 400 MG IV ×4 (03:53→20:33)
[2024-10-15] MEDS: Ketorolac Tromethamine 15 MG/ML VIAL 30 MG IVPUSH ×2 (03:54→07:14)
[2024-10-15 03:59] VITALS: BP 140/86; PULSE 51; RESP 18; TEMP 36.7; O2SAT 97
[2024-10-15 06:39] LABS: MANUAL DIFF FLAG NO
[2024-10-15] MEDS: Doxycycline Monohydrate 100 MG CAPSULE PO ×2 (07:13→20:32)
[2024-10-15] MEDS: oxyCODONE HCl Immed Release 5 MG TABLET 10 MG PO ×4 (07:13→20:33)
[2024-10-15] MEDS: Docusate Sodium 100 MG CAPSULE PO ×2 (07:14→20:32)
[2024-10-15] MEDS: Losartan Potassium 25 MG TABLET PO (07:14)
[2024-10-15 07:30] VITALS: BP 145/87; PULSE 55; RESP 16; TEMP 36.9; O2SAT 96
[2024-10-15 07:31] LABS: Basophils Percent Auto 0.2 % (0-2); Eosinophils Absolute Auto 0.1 X10*3/uL (0.0-0.4); Eosinophils Percent Auto 1.6 % (0-4); Hematocrit 41.4 % (42.0-52.0); Hemoglobin 14.2 g/dl (14.0-18.0); Imm Gran Abs Auto 0.03 X10*3/uL (0.00-0.03); Imm Gran Pct Auto 0.3 % (0.0-0.4); Lymphocytes Absolute Auto 1.7 X10*3/uL (1.2-4.9); Lymphocytes Percent Auto 19.2 % (20-40); Mean Corpuscular HGB Conc 34.3 g/dl (31.0-36.0); Mean Corpuscular Volume 93.2 fL (80.0-98.0); Mean Platelet Volume 9.7 fL (9.4-12.4); Monocytes Absolute Auto 0.9 X10*3/uL (0.1-1.2); Neutrophils Absolute Auto 6.1 x10*3/uL (2.0-8.3); Neutrophils Percent Auto 68.7 % (45-73); Platelet Count 354 X10*3/uL (160-400); Red Blood Count 4.44 X10*6/uL (4.60-5.80); Red Cell Distribution Width 13.2 % (11.0-16.0); White Blood Count 8.8 X10*3/uL (4.8-10.8)
--- NOTE | 2024-10-15 07:47 | PM.PNGS ---
Subjective Subjective Date of Service: 10/15/24 <William Collier PA-C - Last Filed: 10/15/24 09:56> 10/15/24 <Ramesh Barry MD - Last Filed: 10/15/24 09:05> Patient reports: feels better <TERRI Vásquez Last Filed: 10/15/24 09:56> Interval history: Patient is doing well this morning, reports significant pain in the immediate post operative period, however is doing well with changes to pain meds. Patient endorses moderate pain in the left leg. Denies fever, chills, SOB, chest pain. He expressed his desire to go home today <TERRI Vásquez Last Filed: 10/15/24 09:56> Physical Exam Vital Signs: Vital Signs: Last Vital Signs Temp 98.4 F 10/15/24 07:30 Pulse 55 10/15/24 07:30 Resp 16 10/15/24 07:30 BP 145/87 H 10/15/24 07:30 Pulse Ox 96 10/15/24 07:30 O2 Del Method Room Air 10/15/24 07:30 BMI result Body Mass Index 29.3 <William Collier PA-C - Last Filed: 10/15/24 09:56> Const: General: comfortable and no acute distress <TERRI Vásquez Last Filed: 10/15/24 09:56> Orientation/consciousness: patient oriented x3 <William Collier PA-C - Last Filed: 10/15/24 09:56> Resp: Effort & Inspection: normal respiratory effort and able to speak in complete sentences <TERRI Vásquez Last Filed: 10/15/24 09:56> Neuro: General: patient oriented x3 <TERRI Vásquez Last Filed: 10/15/24 09:56> Extrem: Other: LEFT BKA present. stump remains dressed. proximal LLE appears normal <TERRI Vásquez Last Filed: 10/15/24 09:56> Objective Data Active Medications Calcium Carbonate (Calcium Carbonate 750 Mg Tab.Chew) 750 mg PO Q4H PRN PRN Reason: Heartburn Docusate Sodium (Docusate Sodium 100 Mg Capsule) 100 mg PO BID [facility] Last Admin: 10/15/24 07:14 Dose: 100 mg Documented By: KE Doxycycline Monohydrate (Doxycycline Monohydrate 100 Mg Capsule) 100 mg PO BID [facility] Last Admin: 10/15/24 07:13 Dose: 100 mg Documented By: KE Heparin Sodium (Porcine) (Heparin Sodium,Porcine 5,000 Unit/Ml Vial) 5,000 unit SUBCUT Q8H [facility] Hydromorphone HCl (Hydromorphone Hcl 0.5 Mg/0.5 Ml Syringe) 0.5 mg IVPUSH Q2H PRN; Protocol PRN Reason: Pain, Severe (Pain Scale 7-10) Last Admin: 10/14/24 23:53 Dose: 0.5 mg Documented By: SAM Acetaminophen (Ofirmev) 1,000 mg in 100 mls @ 400 mls/hr IV Q6H [facility] Last Infusion: 10/15/24 07:46 Dose: Infused Documented By: KE Ketorolac Tromethamine (Ketorolac Tromethamine 15 Mg/Ml Vial) 30 mg IVPUSH Q6H [facility] Stop: 10/19/24 20:59 Last Admin: 10/15/24 07:14 Dose: 30 mg Documented By: KE Losartan Potassium (Losartan Potassium 25 Mg Tablet) 25 mg PO DAILY [facility]; Protocol Last Admin: 10/15/24 07:14 Dose: 25 mg Documented By: KE Magnesium Hydroxide (Milk Of Magnesia 30 Ml Oral.Susp) 30 ml PO DAILY PRN PRN Reason: Constipation Melatonin (Melatonin 3 Mg Tablet) 6 mg PO BEDTIME PRN PRN Reason: Insomnia Ondansetron HCl (Ondansetron Hcl 4 Mg/2 Ml Vial) 4 mg IVPUSH Q8H PRN PRN Reason: Nausea and Vomiting Oxycodone HCl (Oxycodone Hcl Immed Release 5 Mg Tablet) 10 mg PO Q4H PRN PRN Reason: Pain, Moderate(Pain Scale 4-6) Last Admin: 10/15/24 07:13 Dose: 10 mg Documented By: KE Sodium Chloride (0.9 % Sodium Chloride Flush 3 Ml Syringe) 3 ml IVFLUSH QSHIFT [facility] Last Admin: 10/15/24 07:14 Dose: Not Given Documented By: KE Non-Admin Reason: IV Running <William Collier PA-C - Last Filed: 10/15/24 09:56> Labs CBC & Chem 7: 10/15/24 05:27 <William Collier PA-C - Last Filed: 10/15/24 09:56> Labs: Laboratory Results - last 24 hr 10/15/24 05:27 MCV 93.2 MCH 32.0 MCHC 34.3 RDW 13.2 Plt Count 354 MPV 9.7 Immature Gran % (Auto) 0.3 Neut % (Auto) 68.7 Lymph % (Auto) 19.2 L Rolette % (Auto) 10.0 Eos % (Auto) 1.6 Baso % (Auto) 0.2 Lymph # (Auto) 1.7 Rolette # (Auto) 0.9 Eos # (Auto) 0.1 Baso # (Auto) 0.0 Abs Immat Gran (auto) 0.03 Absolute Neuts (auto) 6.1 Absolute Nucleated RBC 0.000 Nucleated RBC % (auto) 0.0 <William Collier PA-C - Last Filed: 10/15/24 09:56> Procedures Date of Service Date of Service: 10/15/24 <William Collier PA-C - Last Filed: 10/15/24 09:56> 10/15/24 <Ramesh Barry MD - Last Filed: 10/15/24 09:05> Progress Note: A&P Assessment and plan (1) Chronic osteomyelitis: Status: Acute <William Collier PA-C - Last Filed: 10/15/24 09:56> Assessment and Plan: Had poor pain control last night I had to add Toradol and increase narcotic doses He says he has good pain control this morning We will decrease meds and see how his pain control is Dressings dry PT consult Seen and examined independently <Ramesh Barry MD - Last Filed: 10/15/24 09:05> Assessment and Plan: 58-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 He denies shortness breath, chest pain. He is tolerating diet. Left lower extremity stump dressings dry and intact, plan to change tomorrow. They are not overly saturated at this time. AM labs reviewed, mild decrease in H/H, appropriate response given his surgery yesterday. Pain regimen decreased, will see how patient tolerates this afternoon Spirometry, ambulation as tolerated PT consult <William Collier PA-C - Last Filed: 10/15/24 09:56> Time Spent With Patient Time: Total time managing care of this patient today ____ minutes. <William Collier PA-C - Last Filed: 10/15/24 09:56> Quality Stroke Does the patient have a stroke diagnosis?: No <Ramesh Barry MD - Last Filed: 10/15/24 09:05> VTE Prior VTE?: No <Ramesh Barry MD - Last Filed: 10/15/24 09:05> VTE Risk Level:: Surgical - high <William Collier PA-C - Last Filed: 10/15/24 09:56> VTE Device Contraindication: N/A - Device Ordered <William Collier PA-C - Last Filed: 10/15/24 09:56> VTE Drug Contraindication: N/A - Med Ordered <William Collier PA-C - Last Filed: 10/15/24 09:56>
--- NOTE | 2024-10-15 09:41 | MHC.CM.PN ---
ptmlives with others he is indepedent had no previous services dc plan ?acute rehab pending pt jessica
--- NOTE | 2024-10-15 09:58 | HO.POSTANES ---
Post Anesthesia Evaluation Post Anesthesia Evaluation Date of Service: 10/15/24 Vital Signs: Vital Signs Temp Pulse Resp BP Pulse Ox O2 Del Method 10/15/24 07:30 98.4 F 55 16 145/87 H 96 Room Air 10/15/24 03:59 98.1 F 51 18 140/86 H 97 Room Air 10/14/24 23:45 98.2 F 59 18 128/80 98 Room Air Anesthesia: Spinal Mental Status: Awake Pain Control: Satisfactory Nausea/Vomiting: None Hydration: Adequate Anesthesia-Related Issues: No Anes. Related Issues
[2024-10-15 10:35] VITALS: BP 145/87; PULSE 55; O2SAT 96
[2024-10-15] MEDS: Heparin Sodium,Porcine 5,000 UNIT/ML VIAL 5000 UNIT SUBCUT ×2 (10:48→17:11)
[2024-10-15] MEDS: HYDROmorphone HCl 0.5 MG/0.5 ML SYRINGE IVPUSH ×3 (10:52→21:26)
[2024-10-15 15:50] VITALS: BP 137/77; PULSE 59; RESP 16; TEMP 36.7; O2SAT 96
[2024-10-15] MEDS: 0.9 % Sodium Chloride Flush 3 ML SYRINGE IVFLUSH (17:11)
[2024-10-15 19:40] VITALS: BP 148/80; PULSE 66; RESP 18; TEMP 36.7; O2SAT 97
[2024-10-16] MEDS: Heparin Sodium,Porcine 5,000 UNIT/ML VIAL 5000 UNIT SUBCUT ×2 (02:16→11:43)
[2024-10-16] MEDS: 0.9 % Sodium Chloride Flush 3 ML SYRINGE IVFLUSH ×2 (02:17→08:13)
[2024-10-16] MEDS: Acetaminophen 1,000 MG/100 ML PIGGYBACK 400 MG IV (02:17)
[2024-10-16 03:23] VITALS: BP 160/86; PULSE 50; RESP 18; TEMP 36.3; O2SAT 96
[2024-10-16 07:20] VITALS: BP 160/72; PULSE 71; RESP 18; TEMP 36.3; O2SAT 98
[2024-10-16] MEDS: HYDROmorphone HCl 0.5 MG/0.5 ML SYRINGE IVPUSH (08:10)
[2024-10-16] MEDS: Docusate Sodium 100 MG CAPSULE PO (08:10)
[2024-10-16] MEDS: Losartan Potassium 25 MG TABLET PO (08:10)
[2024-10-16] MEDS: Doxycycline Monohydrate 100 MG CAPSULE PO (08:11)
[2024-10-16] MEDS: Acetaminophen 1,000 MG/100 ML PIGGYBACK 100 MG IV (08:11)
--- NOTE | 2024-10-16 08:16 | PM.PNGS ---
Subjective Subjective Date of Service: 10/16/24 <William Collier PA-C - Last Filed: 10/16/24 10:55> 10/16/24 <Ramesh Barry MD - Last Filed: 10/16/24 08:21> Patient reports: no new complaints, feels better, tolerating a regular diet, bowel movement and afebrile <William Collier PA-C - Last Filed: 10/16/24 10:55> Interval history: Patient reports he is doing well today, wants to go home. He is requiring lest PRN pain medication. Has produced multiple bowel movements. Tolerating regular diet. Ambulating in the room with crutches. Denies fever/chills, shortness of breath, chest pain. <William Collier PA-C - Last Filed: 10/16/24 10:55> Physical Exam Vital Signs: Vital Signs: Last Vital Signs Temp 97.4 F 10/16/24 07:20 Pulse 71 10/16/24 07:20 Resp 18 10/16/24 07:20 BP 160/72 H 10/16/24 07:20 Pulse Ox 98 10/16/24 07:20 O2 Del Method Room Air 10/16/24 07:20 BMI result Body Mass Index 29.3 <William Collier PA-C - Last Filed: 10/16/24 10:55> Const: General: comfortable and no acute distress <William Collier PA-C - Last Filed: 10/16/24 10:55> Orientation/consciousness: patient oriented x3 <William Collier PA-C - Last Filed: 10/16/24 10:55> Resp: Effort & Inspection: normal respiratory effort and able to speak in complete sentences <William Collier PA-C - Last Filed: 10/16/24 10:55> Neuro: General: patient oriented x3 <TERRI Vásquez Last Filed: 10/16/24 10:55> Extrem: Other: Left BKA. Suture line intact, no surrounding erythema, mild edema. Minimal bloody discharge noted. <TERRI Vásquez Last Filed: 10/16/24 10:55> Objective Data Active Medications Calcium Carbonate (Calcium Carbonate 750 Mg Tab.Chew) 750 mg PO Q4H PRN PRN Reason: Heartburn Docusate Sodium (Docusate Sodium 100 Mg Capsule) 100 mg PO BID [facility] Last Admin: 10/16/24 08:10 Dose: 100 mg Documented By: VICKI Doxycycline Monohydrate (Doxycycline Monohydrate 100 Mg Capsule) 100 mg PO BID [facility] Last Admin: 10/16/24 08:11 Dose: 100 mg Documented By: VICKI Heparin Sodium (Porcine) (Heparin Sodium,Porcine 5,000 Unit/Ml Vial) 5,000 unit SUBCUT Q8H [facility] Last Admin: 10/16/24 02:16 Dose: 5,000 unit Documented By: JOHANA Hydromorphone HCl (Hydromorphone Hcl 0.5 Mg/0.5 Ml Syringe) 0.5 mg IVPUSH Q3H PRN; Protocol PRN Reason: Pain, Severe (Pain Scale 7-10) Last Admin: 10/16/24 08:10 Dose: 0.5 mg Documented By: VICKI Acetaminophen (Ofirmev) 1,000 mg in 100 mls @ 400 mls/hr IV Q6H [facility] Last Admin: 10/16/24 08:11 Dose: 100 mls/hr Documented By: VICKI Losartan Potassium (Losartan Potassium 25 Mg Tablet) 25 mg PO DAILY [facility]; Protocol Last Admin: 10/16/24 08:10 Dose: 25 mg Documented By: VICKI Magnesium Hydroxide (Milk Of Magnesia 30 Ml Oral.Susp) 30 ml PO DAILY PRN PRN Reason: Constipation Melatonin (Melatonin 3 Mg Tablet) 6 mg PO BEDTIME PRN PRN Reason: Insomnia Ondansetron HCl (Ondansetron Hcl 4 Mg/2 Ml Vial) 4 mg IVPUSH Q8H PRN PRN Reason: Nausea and Vomiting Oxycodone HCl (Oxycodone Hcl Immed Release 5 Mg Tablet) 10 mg PO Q4H PRN PRN Reason: Pain, Moderate(Pain Scale 4-6) Last Admin: 10/15/24 20:33 Dose: 10 mg Documented By: JOHANA Sodium Chloride (0.9 % Sodium Chloride Flush 3 Ml Syringe) 3 ml IVFLUSH QSHIFT [facility] Last Admin: 10/16/24 08:13 Dose: 3 ml Documented By: VICKI <William Collier PA-C - Last Filed: 10/16/24 10:55> Labs CBC & Chem 7: 10/15/24 05:27 <William Collier PA-C - Last Filed: 10/16/24 10:55> Procedures Date of Service Date of Service: 10/16/24 <William Collier PA-C - Last Filed: 10/16/24 10:55> 10/16/24 <Ramesh Barry MD - Last Filed: 10/16/24 08:21> Progress Note: A&P Assessment and plan (1) S/P BKA (below knee amputation): Status: Acute <William Collier PA-C - Last Filed: 10/16/24 10:55> Assessment and Plan: He looks well had a good night Says she has good pain control Incision clean and dry Dressings reapplied Okay to discharge today Arranged for visiting nurse Instructions reinforced with the patient Seen and examined independently <Ramesh Barry MD - Last Filed: 10/16/24 08:21> Assessment and Plan: 58 year old male POD2 s/p L BKA. Patient is doing well, wants to go home. He denies fever/chills. pain is well controlled, no longer requiring scheduled pain regimen. Dressings removed today, small amounts of discharge noted. Stump flap appears viable, no noted necrosis, mild edema. No surrounding erythema, or purulent drainage. Dressings reapplied with fluffs, kerlix, kely bandage. He is tolerating regular diet, passing bowel movements. He is ambulating independently with crutches, he has been seen by PT. Plan to discharge today with VNA services ambulate as tolerated <William Collier PA-C - Last Filed: 10/16/24 10:55> Time Spent With Patient Time: Total time managing care of this patient today ____ minutes. <William Collier PA-C - Last Filed: 10/16/24 10:55> Quality Stroke Does the patient have a stroke diagnosis?: No <William Collier PA-C - Last Filed: 10/16/24 10:55> VTE Prior VTE?: No <TERRI Vásquez Last Filed: 10/16/24 10:55> VTE Risk Level:: Surgical - high <TERRI Vásquez Last Filed: 10/16/24 10:55> VTE Device Contraindication: N/A - Device Ordered <William Collier PA-C - Last Filed: 10/16/24 10:55> VTE Drug Contraindication: N/A - Med Ordered <William Collier PA-C - Last Filed: 10/16/24 10:55>
[2024-10-16 08:55] VITALS: BP 160/72; PULSE 71; O2SAT 98
--- NOTE | 2024-10-16 12:36 | P.F2F_ITS ---
Service Date Service Date: 10/16/24 Encounter Date of encounter: 10/16/24 Reasons for Services Signs and symptoms assessed: s/p left BKA Wound care, dressing changes Reason for senior living: wound care (Left BKA) and postoperative assessment and/or care Reason for physical therapy: home safety and mobility, gait/transfer training and ADL training Homebound: Leaving the home is medically contraindicated at this time without the asist of a device and/or another person due th the listed conditions above and below. Reason homebound: unsteady gait / fall risk, weakness related to hospital stay and other (S/p left BKA) Certification: Based on the above findings, I certify that this patient is confined to the home and needs intermittent senior living care, physical therapy and/or speech therapy, or continues to need occupational therapy. The patient is under my care, and I have initiated the establishment of the plan of care. The patient will be followed by a physician who will periodically review the plan of care. Time Spent With Patient Time: Total time managing care of this patient today _30___ minutes.
[2024-10-16 12:55] VITALS: BP 159/81; PULSE 58; RESP 16; TEMP 36.4; O2SAT 96
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
--- NOTE | 2024-10-25 00:28 | PC.NURSE ---
Late entry: 10/15/24 Patient was administered Oxycodone 10 mg at 2032 for 8/10 pain per patient's request.
== END 2024-10-16 13:28 | disposition home health service (06) | DRG 305 ==
LOC: HO.SSSA 10:46 → HO.S3 12:49
PROVIDERS: Absent Provider Physician Assistant Surgical; Admitting Provider Physician Assistant Surgical; Visit Provider Surgery
PROC: 0Y6J0Z2 Detachment at Left Lower Leg, Mid, Open Approach (ICD-10-PCS; CPT 27880; principal; 2024-10-14 10:00)
DX: M86.672 Other chronic osteomyelitis, left ankle and foot (principal); F17.210 Nicotine dependence, cigarettes, uncomplicated; Z71.6 Tobacco abuse counseling; Z79.899 Other long term (current) drug therapy
CPT/HCPCS: 36415; 85025; 88304; 88307; 88311; 97116; 97162; J0131; J0665; J0690; J1171; J1644; J1885; J2250; J2704; J7120

== ENCOUNTER → 2024-10-14 09:53 | Outpatient (BNV) | payer OTHER, SELFPAY | PROVIDERS: Absent Provider Physician Assistant Surgical; Admitting Provider Physician Assistant Surgical; Visit Provider Surgery | DX: Z89.519 Acquired absence of unspecified leg below knee (principal) | CPT/HCPCS: 99024; 99238; 99499; G0180 ==

== ENCOUNTER 2024-10-21 15:22 | Outpatient (AMB) | payer OTHER, SELFPAY ==
--- OUTSIDE RECORDS SUMMARY | 2024-10-21 15:27 | XMS_ITS | Clinical Summary ---
Author Organization [facility] Address [address] [place] [address] Care Team Providers Care Acquisition Marketing Manager Name Role Phone Unavailable Primary Care [...]
--- NOTE | 2024-10-21 15:28 | MHC.PC.OV ---
Vital Signs 10/21/24 15:31 Height 5 ft 5.75 in Weight 174 lb 9.698 oz BMI 28.4 BP 130/68 Blood Pressure Location Lt brachial Position Sitting Pulse 78 Pulse Source Pulse Oximeter Temp 97.3 F Temp Source Temporal Artery Scan Pulse Oximetry (%) 97 Oxygen Delivery Method Room Air Intake Visit Reasons: [facility] 10/15 s/p left BKA Intake Note: Patient is here for hospital discharge follow up. Patient was discharged from [facility] on 10/15/24. Meteorology Instructor Required: No Computerized Machine Fabric Cutter: Not Required per policy Accompanied by: Self / Same As Patient Allergies No Known Allergies [No Known Allergies*] Allergy (Verified 10/21/24 15:30) Medication List - Last Reconciled 10/21/24 by Marian Vang PA-C docusate sodium (Colace) 100 mg PO BID losartan 25 mg PO DAILY oxycodone 5 mg PO Q6H PRN Tobacco use date assessed: 10/21/24 Dental Screening Dental Screen Date: 09/04/24 HPI [facility] 10/15 s/p left BKA HPI Details 58-year-old male with past medical history of osteomyelitis, tobacco abuse, hypertension last seen 08/2024 coming in for hospital discharge follow up.? In review of the notes, patient underwent left zenvq-bew-[id number] amputation with Dr. Barry for chronic osteomyelitis 09/2024 did well postoperatively and patient was discharged home 10/16/24 Presenting for follow-up for postoperative lower limb amputation care. The surgery occurred five days ago, with Dr. Barry determining amputation necessary. Since surgery, he uses crutches and does not report bleeding and experiences no excessive wound drainage or signs of infection. Visiting nurses assist in changing the bandage every other day. The patient requires ongoing oxycodone for pain control only as needed. The patient plans for a four-month recovery timeline and has ongoing paperwork for short-term disability. He also seeks help acquiring a handicap parking permit. Patient has been using crutches to ambulate and has no issues with this. He denies any fevers or any other symptoms at this time and has been recovering well postoperatively. [facility] Medical History Compression fracture of body of thoracic vertebra Brain aneurysm Surgical History (Updated 10/21/24 @ 15:37 by DAVID Shelley) History of left below knee amputation History of foot surgery Social History Household Members: Family Housing: Apartment Are you a primary health care coordinator to a significant other at home: No Do you presently have visiting nurse or other home services: No Alcohol intake: current Alcohol intake frequency: 0-2 drinks per day Comment: pt refusing alarms, encouraged to call for assistance. 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 Cognitive needs: Yes (Croches) Hearing needs: No Vision needs: Yes (Glasses) Questionnaire Thrive Questionnaire Date Thrive assessed: 08/21/24 I am a: Patient What is your living situation today?: I have a steady place to live Within the past 12 months, did the food you bought not last and you didn't have the money to get more?: Never true Within the past 12 months, did you worry whether your food would run out before you got money to buy more?: Never true Do you have trouble paying for medicines?: No Do you have trouble getting transportation to medical appointments?: No Do you have trouble paying your heating and electricity bill?: No Do you have trouble taking care of your child, family member or friend?: No Do you have trouble with day-to-day activities such as bathing, preparing meals, shopping, managing finances, etc.?: No Are you currently unemployed and looking for a job?: No Are you interested in more education?: No Please select the resources that you would like help with: None Currently or been in a relationship where the following occur: No concerns reported THRIVE Score: 0 JOLIE-7 AMB Questionnaire JOLIE-7 Date JOLIE - 7 assessed: 08/21/24 Source: Developed by Drs. Brent Garcia, Amaya Maddox, Diogenes Ely and colleagues, with an educational destiny from [employer]. Review of Systems Const Denies body aches, Denies chills, Denies fever(s), Denies headache(s) and Denies poor appetite Eyes Reports no additional complaints ENT Denies dysphagia, Denies dizziness, Denies headache(s) and Denies odynophagia Card Denies chest pain, Denies irregular heart rhythm, Denies lightheadedness and Denies dyspnea Resp Denies cough and Denies dyspnea GI Denies abdominal pain, Denies constipation, Denies dysphagia, Denies diarrhea, Denies nausea, Denies odynophagia and Denies vomiting Reports no additional complaints Musc Details: Very mild pain of the left stump Reports no additional complaints and Denies abnormal gait Skin/Breast Reports system reviewed and no additional complaints, except as documented Neuro Denies abnormal gait, Denies dizziness and Denies headache(s) Psych Reports no additional complaints Physical exam (Primary Care) Vital Signs: Oxygen Delivery Method Room Air 10/21/24 15:31 BMI result Body Mass Index 28.4 Tobacco/Smoking Status: Tobacco use Status Tobacco use date assessed 09/04/24 09/04/24 15:23 Patient Tobacco Use Status Current everyday Tobacco 10/16/24 12:35 Tobacco use type Cigarette 09/04/24 15:23 e-Cigarette/Vaping Use Never Used 09/04/24 15:23 Thrive Assessment: Date of Thrive Assessment Date Thrive assessed 08/21/24 10/21/24 15:23 Currently or been in a relationship where the following occur: No concerns reported Const General: cooperative, healthy appearing, comfortable and no acute distress Orientation/consciousness: patient oriented x3 HENMT Head: Yes normocephalic Ears: hearing grossly normal bilaterally General nose exam: Normal external nose present Eyes General: appearance normal, both eyes and all related structures Conjunctivae: conjunctivae normal Neck Neck: Yes full ROM and Yes no lymphadenopathy Resp Effort & Inspection: normal respiratory effort Auscultation: clear to auscultation bilaterally, no crackles, no rales, no rhonchi and no wheezes Cardio Rate: regular rate Rhythm: regular rhythm Skin General skin exam: no rashes or lesions noted Neuro General: patient oriented x3 Gait exam (Neuro): Normal gait present Extrem Other: Left olyfa-hcb-[id number] amputation. Incision site is clean, dry, and intact without erythema or evidence of infection. General: Yes normal to inspection and No edema Psych Affect: normal affect Attitude: cooperative Insight: Good insight present (Psych) Judgement: Good judgement present (Psych) Coding Level of Care Code Est Pt Level 4 (80724) Diagnoses S/P BKA (below knee amputation) Z89.519 Chronic osteomyelitis M86.60 Hypertension I10 Tobacco abuse Z72.0 Assessment & Plan Assessment & Plan (1) S/P BKA (below knee amputation): Comment: Left Code(s): Z89.519 - Acquired absence of unspecified leg below knee Category: Surgical Plan: Surgical site was visualized today as clean dry and intact without evidence of infection. I redressed the wound with nonadherent gauze and wrapped with Florencio bandage. I did remind the patient not to soak the sutures and avoid baths and hot tubs. Emphasis was placed on vigilant wound monitoring, with visiting nurses assisting with regular bandage changes to minimize infection risk. I addressed the procurement of a handicap parking permit, facilitating the necessary documentation to aid the process. The patient's use of crutches, with future prosthetic fitting planned post-healing, aligns with maintaining mobility. (2) Chronic osteomyelitis: Comment: He has chronic OM for many years, MSSA found Code(s): M86.60 - Other chronic osteomyelitis, unspecified site Category: Medical Plan: Patient is being treated by Dr. Barry for chronic osteomyelitis which resulted in a vdctl-byi-lzwi amputation of the left leg. Patient has been doing well postoperatively. See above (3) Hypertension: Comment: restricted DOT Code(s): I10 - Essential (primary) hypertension Category: Medical Plan: Continue on current blood pressure medication. Avoid salt intake and encourage healthy diet and regular exercise. (4) Tobacco abuse: Code(s): Z72.0 - Tobacco use Category: Medical Plan: Smoking cigarettes and the use of tobacco can be harmful. We discussed the importance of stopping and options to aid in smoking cessation. I support continued smoking cessation, highlighting benefits for surgical recovery. Declining nicotine replacement therapy at this time Plan This note was constructed using voice recognition software. While every effort has been made to ensure accuracy and inspector eyeglass frames, still areas may have been included sometimes these areas may affect the content or meeting of the given symptoms. Total time spent caring for the patient today was 20 minutes. This includes time spent before the visit reviewing the chart, time spent during the visit, and time spent after the visit and documentation. Patient was informed and verbally consented to the use of an ambient scribe for clinic note documentation during this visit.
[2024-10-21 15:31] VITALS: BP 130/68; PULSE 78; TEMP 36.3; O2SAT 97; BMI 28.4
== END 2024-10-21 16:13 | disposition home or self-care (01) ==
LOC: HO.HMCH 15:23
DX: Z89.519 Acquired absence of unspecified leg below knee (principal); M86.60 Other chronic osteomyelitis, unspecified site; I10 Essential (primary) hypertension; Z72.0 Tobacco use

== ENCOUNTER → 2024-10-21 15:22 | Outpatient (BNVA) | payer OTHER, SELFPAY | DX: Z13.89 Encounter for screening for other disorder (principal) ==

== ENCOUNTER 2024-10-27 10:57 | Outpatient (AMB) | payer OTHER, SELFPAY ==
--- NOTE | 2024-10-27 11:18 | MHC.OFFVIS ---
Vital Signs 10/27/24 11:25 Height 5 ft 5.75 in Weight 173 lb 4 oz BMI 28.2 BP 174/81 H Blood Pressure Location Lt brachial Position Sitting Pulse 71 Intake Visit Reasons: s/p BKA, left Intake Note: Patient is seen in office for post op assessment post left leg below the knee amputation. Pt c/o:admits to healing as expected has VNA coming in 3 times per week, some minimal bloody discharge starte couple days ago, has sutures in place Servicing Manager Required: No Accompanied by: Self / Same As Patient Allergies No Known Allergies [No Known Allergies*] Allergy (Verified 10/27/24 11:25) HPI HPI s/p BKA, left: Details: Mr. Melvin presents for wound check and follow up after left BKA on 10/14/[address] Barry for chronic osteomyelitis and nonhealing wound of the left heel. He tolerated the procedure well and had an uncomplicated recovery course. He was discharged to home with VNA and PT services. He reports overall doing well. He mostly complains of phantom foot pain. He is still taking percocet for pain control but is trying to stretch out the time between when he takes them now. He reports increasing pain at the amputation site after he has been ambulating around. He continues to use crutches without difficulty. He has been elevating his left stump at rest. He wears his hangar brace at home, however he is unable to drive in it and did not wear it to todays visit. VNA has been coming 3x/week for dressing changes. He reports some occasional bloody drainage from the medial aspect of the incision. Denies fevers, chills, purulent drainage from wound. He has no concerns. [facility] Medical History Compression fracture of body of thoracic vertebra Brain aneurysm Surgical History History of left below knee amputation (10/14/24) History of foot surgery Social History Household Members: Family Housing: Apartment Are you a primary director of patient care to a significant other at home: No Do you presently have visiting nurse or other home services: No Alcohol intake: current Alcohol intake frequency: 0-2 drinks per day Comment: pt refusing alarms, encouraged to call for assistance. 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 Cognitive needs: Yes (Croches) Hearing needs: No Vision needs: Yes (Glasses) Review of Systems Const Denies chills and Denies fever(s) ENT Denies dizziness Card Denies chest pain and Denies dyspnea Resp Denies dyspnea Skin/Breast Reports as per HPI Neuro Denies dizziness Physical Exam Vital Signs: Last Vital Signs Pulse 71 10/27/24 11:25 BP 174/81 H 10/27/24 11:25 BMI result Body Mass Index 28.2 Const General: comfortable, no acute distress and alert Orientation/consciousness: patient oriented x3 Resp Effort & Inspection: normal respiratory effort Skin Other: warm and dry Neuro General: patient oriented x3 and moves all extremities Extrem Other: left BKA site with incision well approximated and sutures intact, flap remains viable appearing, no necrosis, mild residual edema of stump; pale erythema surrounding sutures, no drainage noted ; every other suture was removed today uneventfully Results Reviewed Results Reviewed: A. Leg and foot, left lower (below-knee amputation): -Chronic osteomyelitis and skin ulcer. -Bone marrow at margin appears viable. -Necrotic calcified tissue present at the soft tissue margin. -Status post multiple ankle/foot surgeries with hardware and scarring. -Tibial vessels with mild atherosclerosis. B. Soft tissue, left lower leg, excision: -Adipose tissue and skeletal muscle with atrophy, with fibrosis, extensive necrosis, and calcification with focal osseous metaplasia, consistent with myositis ossificans Assessment & Plan Assessment & Plan (1) S/P BKA (below knee amputation): Comment: Left Code(s): Z89.519 - Acquired absence of unspecified leg below knee Category: Surgical Plan 58 year old male who is almost 2 weeks s/p left BKA. He continues to do well, the amputation incision site remains well approximated with viable flap, without evidence of infection, mild residual edema of stump. Every other suture was removed today, plan for follow up in the office in 1 week for remainder of sutures to be removed. Cont VNA services for now for dressing changes. Encouraged continued leg elevation to reduce edema while at rest. Educated no driving while he is taking narcotics. He understands and agrees with plan, all questions answered. F/u in office in 1 week or sooner if he develops concerns. Coding Level of Care Code Global (54026) Diagnoses S/P BKA (below knee amputation) Z89.519
[2024-10-27 11:25] VITALS: BP 174/81; PULSE 71; BMI 28.2
--- OUTSIDE RECORDS SUMMARY | 2024-10-27 12:13 | XMS_ITS | Clinical Summary ---
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
== END 2024-10-27 11:43 | disposition home or self-care (01) ==
LOC: HO.HGS 11:00
PROVIDERS: Visit Provider Physician Assistant Surgical
DX: Z89.519 Acquired absence of unspecified leg below knee (principal)
CPT/HCPCS: 99024

== ENCOUNTER 2024-11-04 10:48 | Outpatient (AMB) | payer OTHER, SELFPAY ==
--- NOTE | 2024-11-04 10:55 | A.OFFVIS_ITS ---
Vital Signs 11/04/24 11:03 Height 5 ft 5 in BP 144/86 H Blood Pressure Location Rt brachial Position Sitting Intake Visit Reasons: suture removal Intake Note: Pt states, I'm here to get the rest of the surtures out. c/o bleeding at medial end of sutures and pain that comes and goes. Granite Installer Required: No Allergies No Known Allergies [No Known Allergies*] Allergy (Verified 11/04/24 10:56) Medication List - Last Reconciled 11/04/24 by Danny Ruiz RN losartan 25 mg PO DAILY oxycodone 5 mg PO Q6H PRN HPI HPI suture removal: Details: Mr. Melvin presents for wound check and suture removal. He underwent left BKA on 10/14/[address] Barry for chronic osteomyelitis and nonhealing wound of the left heel and was seen in the office a week ago for a wound check where every other suture was removed. He still complains of some phantom foot pain and is requiring oxycodone mostly in the morning, but reports the pain is overall improved. He continues to use crutches without difficulty. He wears his hangar brace at home, however he is unable to drive in it and did not wear it to todays visit. VNA still comes 3x/week for dressing changes. He reports some occasional bloody drainage from the medial aspect of the incision but otherwise denies any drainage. He has no concerns. [facility] Medical History Compression fracture of body of thoracic vertebra Brain aneurysm Surgical History History of left below knee amputation (10/14/24) History of foot surgery Social History Household Members: Family Housing: Apartment Are you a primary healthcare science specialist to a significant other at home: No Do you presently have visiting nurse or other home services: No Alcohol intake: current Alcohol intake frequency: 0-2 drinks per day Comment: pt refusing alarms, encouraged to call for assistance. 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 Cognitive needs: Yes (Croches) Hearing needs: No Vision needs: Yes (Glasses) Review of Systems Const All systems reviewed & are unremarkable except as noted in HPI and below Physical Exam Vital Signs: Last Vital Signs BP 144/86 H 11/04/24 11:03 Const General: comfortable, no acute distress and alert Resp Effort & Inspection: normal respiratory effort Skin General skin exam: no rashes or lesions noted Extrem Other: left BKA stump incision healing well with small amount of scabbing on suture line, more so on medial aspect, flap viable, very mild remaining edema, no erythema, all sutures removed Assessment & Plan Assessment & Plan (1) S/P BKA (below knee amputation): Comment: Left Code(s): Z89.519 - Acquired absence of unspecified leg below knee Category: Surgical Plan 58 year old male who is s/p left BKA. He continues to do well, the amputation incision site remains well approximated with viable flap, no evidence of wound infection, all sutures removed. He has very mild residual edema of the stump. Recommended keeping the stump covered for now given intermittent drainage and he would like to continue VNA services for now. Discussed follow up with LAXMI Delgado in office in 2 weeks for a wound check and then in the office in 1 month in hopes the stump is ready for his prosthetic, or sooner if needed. Coding Level of Care Code Global (61065) Diagnoses S/P BKA (below knee amputation) Z89.519
[2024-11-04 11:03] VITALS: BP 144/86
--- OUTSIDE RECORDS SUMMARY | 2024-11-04 12:42 | XMS_ITS | Clinical Summary ---
Author Organization [facility] Address [address] [place] [address] Care Team Providers Care Cook Chief Name Role Phone Unavailable Primary Care Provider [...]
== END 2024-11-04 11:29 | disposition home or self-care (01) ==
LOC: HO.HGS 10:48
PROVIDERS: Visit Provider Physician Assistant Surgical
DX: Z89.519 Acquired absence of unspecified leg below knee (principal)
CPT/HCPCS: 99024

== ENCOUNTER → 2024-11-18 09:41 | Outpatient (BNVA) | payer OTHER, SELFPAY | PROVIDERS: Visit Provider Surgery | DX: Z48.00 Encounter for change or removal of nonsurgical wound dressing (principal) | CPT/HCPCS: 99211 ==

== ENCOUNTER 2024-11-24 08:25 | Outpatient (AMB) | payer OTHER, SELFPAY ==
--- NOTE | 2024-11-24 08:30 | MHC.PC.OV ---
Vital Signs 11/24/24 08:31 11/24/24 09:02 Height 5 ft 5 in Weight 174 lb 13.225 oz BMI 29.1 BP 132/90 H 158/90 H Blood Pressure Location Lt brachial Lt brachial Position Sitting Pulse 89 Pulse Source Pulse Oximeter Temp 97.3 F Temp Source Temporal Artery Scan Pulse Oximetry (%) 98 Oxygen Delivery Method Room Air Intake Visit Reasons: high B/Ps Intake Note: Patient is here to follow up on High BP. Meat Processor Required: No Fermenter Operator: Not Required per policy Accompanied by: Self / Same As Patient Allergies No Known Allergies (No Known Allergies*) Allergy (Verified 11/24/24 08:59) Medication List - Last Reconciled 11/24/24 by Marian Vang PA-C losartan 25 mg PO DAILY oxycodone 5 mg PO BID PRN Tobacco use date assessed: 11/24/24 Dental Screening Dental Screen Date: 09/04/24 HPI high B/Ps HPI Details 59-year-old male with past medical history of osteomyelitis, tobacco abuse, hypertension last seen 09/2024 coming in for acute problem.? Presenting with hypertension and wound care management. The patient reports a history of elevated blood pressure readings, with recent measurements reaching 188/unknown and 150/90 mmHg. The patient admits to occasionally forgetting to take his antihypertensive medication, which may contribute to elevated readings. The patient is receiving home visits from a nurse for wound management, with significant improvement noted. The patient experiences shooting pain when the wound is touched, suggesting possible nerve involvement. The patient smokes three to four cigarettes daily, primarily after meals, and is attempting to reduce usage without pharmacological aids. [facility] Medical History Compression fracture of body of thoracic vertebra Brain aneurysm Surgical History History of left below knee amputation (10/14/24) History of foot surgery Social History Household Members: Family Housing: Apartment Are you a primary livestock caretaker to a significant other at home: No Do you presently have visiting nurse or other home services: No Alcohol intake: current Alcohol intake frequency: 0-2 drinks per day Comment: pt refusing alarms, encouraged to call for assistance. 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 Cognitive needs: Yes (Croches) Hearing needs: No Vision needs: Yes (Glasses) Questionnaire Thrive Questionnaire Date Thrive assessed: 08/21/24 I am a: Patient What is your living situation today?: I have a steady place to live Within the past 12 months, did the food you bought not last and you didn't have the money to get more?: Never true Within the past 12 months, did you worry whether your food would run out before you got money to buy more?: Never true Do you have trouble paying for medicines?: No Do you have trouble getting transportation to medical appointments?: No Do you have trouble paying your heating and electricity bill?: No Do you have trouble taking care of your child, family member or friend?: No Do you have trouble with day-to-day activities such as bathing, preparing meals, shopping, managing finances, etc.?: No Are you currently unemployed and looking for a job?: No Are you interested in more education?: No Please select the resources that you would like help with: None Currently or been in a relationship where the following occur: No concerns reported THRIVE Score: 0 JOLIE-7 AMB Questionnaire JOLIE-7 Date JOLIE - 7 assessed: 08/21/24 Source: Developed by Drs. Brent Garcia, Amaya Maddox, Diogenes Ely and colleagues, with an educational destiny from [employer]. Review of Systems Const Denies body aches, Denies chills, Denies fever(s), Denies headache(s) and Denies poor appetite Eyes Reports no additional complaints ENT Denies dizziness and Denies headache(s) Card Denies chest pain, Denies syncope, Denies edema, Denies irregular heart rhythm, Denies lightheadedness and Denies dyspnea Resp Denies cough and Denies dyspnea GI Denies abdominal pain, Denies constipation, Denies diarrhea, Denies nausea and Denies vomiting Reports no additional complaints Musc Reports no additional complaints and Denies abnormal gait Skin/Breast Reports system reviewed and no additional complaints, except as documented Neuro Denies abnormal gait, Denies dizziness, Denies syncope and Denies headache(s) Psych Reports no additional complaints Physical exam (Primary Care) Vital Signs: Last Vital Signs Temp 97.3 F 11/24/24 08:31 Pulse 89 11/24/24 08:31 BP 158/90 H 11/24/24 09:02 Pulse Ox 98 11/24/24 08:31 Oxygen Delivery Method Room Air 11/24/24 08:31 BMI result Body Mass Index 29.1 Tobacco/Smoking Status: Tobacco use Status Tobacco use date assessed 11/24/24 11/24/24 08:37 Patient Tobacco Use Status Current everyday Tobacco 11/24/24 08:37 Tobacco use type Cigarette 11/24/24 08:37 e-Cigarette/Vaping Use Never Used 11/24/24 08:37 Thrive Assessment: Date of Thrive Assessment Date Thrive assessed 08/21/24 11/24/24 08:37 Currently or been in a relationship where the following occur: No concerns reported Const General: cooperative, healthy appearing, comfortable and no acute distress Orientation/consciousness: patient oriented x3 HENMT Head: Yes normocephalic Ears: hearing grossly normal bilaterally General nose exam: Normal external nose present Eyes General: appearance normal, both eyes and all related structures Conjunctivae: conjunctivae normal Neck Neck: Yes full ROM and Yes no lymphadenopathy Resp Effort & Inspection: normal respiratory effort Auscultation: clear to auscultation bilaterally, no crackles, no rales, no rhonchi and no wheezes Cardio Rate: regular rate Rhythm: regular rhythm Skin General skin exam: no rashes or lesions noted Neuro General: patient oriented x3 Gait exam (Neuro): Normal gait present Extrem General: Yes normal to inspection, Yes full ROM and No edema Psych Affect: normal affect Attitude: cooperative Insight: Good insight present (Psych) Judgement: Good judgement present (Psych) Coding Level of Care Code Est Pt Level 3 (75820) Diagnoses Hypertension I10 S/P BKA (below knee amputation) Z89.519 Tobacco abuse Z72.0 Assessment & Plan Assessment & Plan (1) Hypertension: Comment: restricted DOT Code(s): I10 - Essential (primary) hypertension Category: Medical Plan: Avoid salt intake and encourage healthy diet and regular exercise. Patient is asymptomatic at this time. Plan to increase losartan to 50 mg as his blood pressure in the office is elevated at 1 50/90 and has been elevated at home. Continue to monitor blood pressures at home and follow up in the office next month. (2) S/P BKA (below knee amputation): Comment: Left Code(s): Z89.519 - Acquired absence of unspecified leg below knee Category: Surgical Plan: Patient is currently following with Dr. Barry and General surgery office for regular wound checks. Per last nurse note no evidence of infection. Continue to follow with VNA as well for regular dressing changes. Wound was not evaluated in the office today as patient is having pain with dressing changes which his surgeon is aware of. (3) Tobacco abuse: Code(s): Z72.0 - Tobacco use Category: Medical Plan: Smoking cigarettes and the use of tobacco can be harmful. We discussed the importance of stopping and options to aid in smoking cessation. Patient has cut back significantly on cigarette use however is still smoking daily. Declining nicotine replacement therapy or medication management at this time. Plan The patient's antihypertensive regimen will be adjusted by increasing the dosage of losartan to 50 mg, with instructions to take two 25 mg tablets until the new prescription is filled. The patient is advised to monitor blood pressure regularly and report any symptoms such as chest pain, shortness of breath, or vision changes. Wound care will continue with home nurse visits, and the patient is advised to avoid irritation to the wound area. The patient is encouraged to continue reducing tobacco use and is advised on the potential impact of smoking on blood pressure control. This note was constructed using voice recognition software. While every effort has been made to ensure accuracy and administrative fellow, still areas may have been included sometimes these areas may affect the content or meeting of the given symptoms. Total time spent caring for the patient today was 20 minutes. This includes time spent before the visit reviewing the chart, time spent during the visit, and time spent after the visit and documentation. Patient was informed and verbally consented to the use of an ambient scribe for clinic note documentation during this visit. 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
[2024-11-24 08:31] VITALS: BP 132/90; PULSE 89; TEMP 36.3; O2SAT 98; BMI 29.1
--- OUTSIDE RECORDS SUMMARY | 2024-11-24 08:32 | XMS_ITS | Clinical Summary ---
Author Organization [facility] Address [address] [place] [address] Care Team Providers Care Meat Carver Name Role Phone Unavailable Primary Care Provider [...]
[2024-11-24 09:02] VITALS: BP 158/90
== END 2024-11-24 09:11 | disposition home or self-care (01) ==
LOC: HO.HMCH 08:26
DX: I10 Essential (primary) hypertension (principal); Z89.519 Acquired absence of unspecified leg below knee; Z72.0 Tobacco use

== ENCOUNTER → 2024-11-24 08:25 | Outpatient (BNVA) | payer OTHER, SELFPAY | DX: Z13.89 Encounter for screening for other disorder (principal) ==

== ENCOUNTER 2024-11-27 09:49 | Outpatient (AMB) | payer OTHER, SELFPAY ==
--- NOTE | 2024-11-27 10:16 | MHC.OFFVIS ---
Vital Signs 11/27/24 10:18 Height 5 ft 5 in Weight 172 lb BMI 28.6 BP 137/65 Blood Pressure Location Rt brachial Position Sitting Pulse 89 Intake Visit Reasons: Wound check Intake Note: Patient here for urgent appointment to have wound check on left BKA stump. Patient reports VNA noticed area infected. Oozing yellowish discharge, painful to touch, redness, inflamed. 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 Docketing Specialist Required: No Accompanied by: Self / Same As Patient Allergies No Known Allergies (No Known Allergies*) Allergy (Verified 12/03/24 10:08) HPI HPI Wound check: Details: He is here for a wound check. He had undergone amputation, [id number], of the left last 10/14/2024. He is being followed here in the office postop in the incision had healed and he had been doing well However, 2 days ago, he would notice some redness and some drainage on the incision medially. He saw his visiting nurse yesterday and was recommended to see me for a wound check. Denies any fever or chills. He says he does not have pain unless the area is pressed. [facility] Medical History Compression fracture of body of thoracic vertebra Brain aneurysm Surgical History History of left below knee amputation (10/14/24) History of foot surgery Social History Household Members: Family Housing: Apartment Are you a primary nonfarm animal caretaker to a significant other at home: No Do you presently have visiting nurse or other home services: No Alcohol intake: current Alcohol intake frequency: 0-2 drinks per day Comment: pt refusing alarms, encouraged to call for assistance. 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 Cognitive needs: Yes (Croches) Hearing needs: No Vision needs: Yes (Glasses) Review of Systems Const Denies chills and Denies fever(s) Physical Exam Vital Signs: Last Vital Signs Pulse 89 11/27/24 10:18 BP 137/65 11/27/24 10:18 BMI result Body Mass Index 28.6 Const General: comfortable and no acute distress Resp Effort & Inspection: normal respiratory effort Extrem Other: BKA stump on the left with redness along the incision, and drainage medially when squeezed Assessment & Plan Assessment & Plan (1) S/P BKA (below knee amputation): Comment: Left Code(s): Z89.519 - Acquired absence of unspecified leg below knee Category: Surgical Plan: He has redness and discharge in the medial aspect of the incision. I opened this up a Q-tip and some seropurulent material was drained. I cultured this. I made sure to drain the entire area completely. I wrapped the foot we Kerlix roll and Florencio bandage I had already prescribed him with a cephalosporin. I will see him in the office next week for a wound check. He does understand that if he develops problems with fever, he may need to go to the emergency room. Orders: Orders Routine Culture w Gram Stain 11/27/24 S91.302A - Unspecified open wound, left foot, initial encounter, Z89.519 - Acquired absence of unspecified leg below knee Coding Level of Care Code Global (66008) Diagnoses S/P BKA (below knee amputation) Z89.519
[2024-11-27 10:18] VITALS: BP 137/65; PULSE 89; BMI 28.6
--- OUTSIDE RECORDS SUMMARY | 2024-11-27 10:22 | XMS_ITS | Clinical Summary ---
Author Organization [facility] Address [address] [place] [address] Care Team Providers Care Estate Planning Director Name Role Phone Unavailable Primary Care Provider [...]
== END 2024-11-27 10:50 | disposition home or self-care (01) ==
LOC: HO.HGS 09:50
PROVIDERS: Visit Provider Surgery
DX: Z89.519 Acquired absence of unspecified leg below knee (principal)
CPT/HCPCS: 99024

== ENCOUNTER 2024-11-27 09:49 | Outpatient (REF) | payer OTHER, SELFPAY | END 2024-11-27 09:50 | disposition home or self-care (01) | LOC: HO.LAB 09:49 | PROVIDERS: Visit Provider Surgery | DX: S91.302A Unspecified open wound, left foot, initial encounter (principal) | CPT/HCPCS: 87070; 87147; 87205 ==

== ENCOUNTER 2024-12-03 10:01 | Outpatient (AMB) | payer OTHER, SELFPAY ==
--- NOTE | 2024-12-03 10:03 | MHC.OFFVIS ---
Vital Signs 12/03/24 10:08 Height 5 ft 5 in Weight 171 lb BMI 28.5 BP 171/88 H Blood Pressure Location Rt brachial Position Sitting Pulse 79 Intake Visit Reasons: Wound check Intake Note: Patient here for 1wk wound check on BKA, left side. Reports improvement with Cephalexin. Has 2d left. Patient c/o: not as much drainage, pain. Mild tenderness, inflammation. 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 There was note of some purulent material drained that time. I also started him on cephalic seen He feels much better. He says that the area has improved significantly. He says this drainage has been very scanty. He says his pain has improved a lot. [facility] Medical History Compression fracture of body of thoracic vertebra Brain aneurysm Surgical History History of left below knee amputation (10/14/24) History of foot surgery Social History Household Members: Family Housing: Apartment Are you a primary restorative care technician to a significant other at home: No Do you presently have visiting nurse or other home services: No Alcohol intake: current Alcohol intake frequency: 0-2 drinks per day Comment: pt refusing alarms, encouraged to call for assistance. 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 Cognitive needs: Yes (Croches) Hearing needs: No Vision needs: Yes (Glasses) Review of Systems Const Denies chills and Denies fever(s) Card Denies chest pain at rest Resp Denies cough GI Denies abdominal pain Physical Exam Vital Signs: Last Vital Signs Pulse 79 12/03/24 10:08 BP 171/88 H 12/03/24 10:08 BMI result Body Mass Index 28.5 Const General: comfortable and no acute distress Resp Effort & Inspection: normal respiratory effort Extrem Other: Left BKA site is much improved, no significant redness, no significant drainage Assessment & Plan Assessment & Plan (1) S/P BKA (below knee amputation): Comment: Left Code(s): Z89.519 - Acquired absence of unspecified leg below knee Category: Surgical Plan: I had open his BKA incision because of purulent drainage. This is much improved today. He seems to have responded as well to cephalosporin. His cultures showed group B strep I rewrapped the stump and changed his dressings. I will see him again in the office next week. Coding Level of Care Code Est Pt Level 2 (21302) Diagnoses S/P BKA (below knee amputation) Z89.519
[2024-12-03 10:08] VITALS: BP 171/88; PULSE 79; BMI 28.5
--- OUTSIDE RECORDS SUMMARY | 2024-12-03 10:44 | XMS_ITS | Clinical Summary ---
Author Organization [facility] Address [address] [place] [address] Care Team Providers Care Reverberatory Skimmer Name Role Phone Unavailable Primary Care Provider [...]
--- OUTSIDE RECORDS SUMMARY | 2024-12-03 10:44 | XMS_ITS | Clinical Summary ---
Author Organization [facility] Address [address] [place] [address] Care Team Providers Care Fishing Captain Name Role Phone Unavailable Primary Care Provider [...] 2023-2 5 season) 2024 Influenza Vaccine (#1) 2025 RSV Immunization Adult Patie nts (1 [...] 5 Years) and At-Risk Patients (6 to 49 [...]
== END 2024-12-03 10:12 | disposition home or self-care (01) ==
LOC: HO.HGS 10:01
PROVIDERS: Visit Provider Surgery
DX: Z89.519 Acquired absence of unspecified leg below knee (principal)
CPT/HCPCS: 99024

== ENCOUNTER 2024-12-11 10:47 | Outpatient (AMB) | payer OTHER, SELFPAY ==
--- NOTE | 2024-12-11 11:08 | A.OFFVIS_ITS ---
Vital Signs 12/11/24 11:18 Height 5 ft 5 in Weight 172 lb BMI 28.6 BP 184/86 H Blood Pressure Location Lt brachial Position Sitting Pulse 87 Intake Visit Reasons: wound check/amputation Intake Note: Patient is seen in office for wound check, post below the knee amputation. Pt c/o: yellow discharge, changing dressing once a day, all done with antbx Principal Accounts Clerk Required: No Accompanied by: Self / Same As Patient Allergies No Known Allergies (No Known Allergies*) Allergy (Verified 12/11/24 11:17) HPI HPI wound check/amputation: Details: He is here for follow-up for an infection of his left BKA stump. I would open this up 2 weeks ago and drained some pus. He was seen in the office last week and there was note of significant improvement of the area. I changed his dressings and I have instructed him to come back for another wound check. He says that the area is much better now. He says that there is no more pain or tenderness. He said that redness has resolved. He still notices some scanty drainage. [facility] Medical History Compression fracture of body of thoracic vertebra Brain aneurysm Surgical History History of left below knee amputation (10/14/24) History of foot surgery Social History Household Members: Family Housing: Apartment Are you a primary regular senior care provider to a significant other at home: No Do you presently have visiting nurse or other home services: No Alcohol intake: current Alcohol intake frequency: 0-2 drinks per day Comment: pt refusing alarms, encouraged to call for assistance. 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 Cognitive needs: Yes (Croches) Hearing needs: No Vision needs: Yes (Glasses) Review of Systems Const Denies chills and Denies fever(s) Card Denies chest pain, Denies dyspnea and Denies dyspnea on exertion Resp Denies cough, Denies dyspnea and Denies dyspnea on exertion GI Denies hematochezia and Denies change in bowel habits Denies hematuria and Denies difficulty urinating Musc Details: Has BKA on the left Neuro Denies focal weakness and Denies convulsions Psych Denies depression and Denies mood swings Physical Exam Const Other: On crutches General: comfortable and no acute distress Resp Effort & Inspection: normal respiratory effort GI Palpation (GI): Soft to palpation Extrem Other: Left BKA site without any redness, fluctuance or obvious drainage at this time this appears to be much improved compared to before. There is a residual skin separation on the wound medially Assessment & Plan Assessment & Plan (1) Wound of left foot: Code(s): S91.302A - Unspecified open wound, left foot, initial encounter Category: Medical Plan: The wound dry currently and the cellulitis improved. He says that there is very scanty drainage now. Overall, he says that this has improved significantly I changed his dressings and applied fresh bandages and Florencio wrap. He is to continue the same wound care and I will see him again in the office in about 3 weeks. Coding Level of Care Code Global (06426) Diagnoses Wound of left foot S91.302A
[2024-12-11 11:18] VITALS: BP 184/86; PULSE 87; BMI 28.6
--- OUTSIDE RECORDS SUMMARY | 2024-12-11 11:27 | XMS_ITS | Clinical Summary ---
Author Organization [facility] Address [address] [place] [address] Care Team Providers Care Food Service Tray Attendant Name Role Phone Unavailable Primary Care Provider [...]
--- OUTSIDE RECORDS SUMMARY | 2024-12-11 11:27 | XMS_ITS | Clinical Summary ---
Author Organization [facility] ity Address [address] [place] [address] Care Team Providers Care Volunteer Fire Fighter Name Role Phone Unavailable Primary Care Provider [...]
== END 2024-12-11 11:24 | disposition home or self-care (01) ==
LOC: HO.HGS 10:47
PROVIDERS: Visit Provider Surgery
DX: S91.302A Unspecified open wound, left foot, initial encounter (principal)
CPT/HCPCS: 99024

== ENCOUNTER 2024-12-25 09:23 | Outpatient (AMB) | payer OTHER, SELFPAY ==
[2024-12-25 09:26] VITALS: BP 140/60; PULSE 78; TEMP 36.9; O2SAT 97; BMI 28.3
--- NOTE | 2024-12-25 09:26 | MHC.PC.OV ---
Vital Signs 12/25/24 09:26 12/25/24 09:50 Height 5 ft 5 in Weight 170 lb 3.15 oz BMI 28.3 BP 140/60 H 144/94 H Blood Pressure Location Lt brachial Lt brachial Position Sitting Sitting Pulse 78 Pulse Source Pulse Oximeter Temp 98.4 F Temp Source Temporal Artery Scan Pulse Oximetry (%) 97 Oxygen Delivery Method Room Air Intake Visit Reasons: f/u BP - see comments Sprinkler Driver Required: No Accompanied by: Self / Same As Patient Allergies No Known Allergies (No Known Allergies*) Allergy (Verified 12/25/24 09:36) Medication List - Last Reconciled 12/25/24 by Marian Vang PA-C cephalexin 500 mg PO TID 7 days [crutches hand hospital insurance clerk As directed] losartan 50 mg PO DAILY tramadol 50 mg PO Q6H PRN Tobacco use date assessed: 12/25/24 Dental Screening Dental Screen Date: 12/25/24 Did you have a dental visit in the last 12 months?: No Did you have a dental problem in the last 6 months where you did not have access to dental care?: No Was dental information given to patient?: No HPI f/u BP - see comments HPI Details 59-year-old male with past medical history of osteomyelitis, tobacco abuse, hypertension last seen 10/2024 coming in for blood pressure follow up. In review of the notes, patient has been following with General surgery last seen 12/11/2024 for wound infection cellulitis and wound had improved and follow up in the office in 3 weeks. Presenting with follow-up on wound healing and management of hypertension. The patient had a wound infection that has shown improvement. The infection was previously more severe, but now there is only one small spot remaining with clear drainage. The patient reports no pain and the wound is not erythematous or warm to touch. The patient has a history of hypertension. Blood pressure readings have been inconsistent, with a recent measurement of 144/94 mmHg. The patient denies symptoms such as headaches, dizziness, or chest pain. Losartan dosage was increased previously, and the patient reports no adverse effects from the medication. The patient has reduced smoking to approximately half a pack per day and is attempting to quit. The patient does not wish to use nicotine replacement therapy. [facility] Medical History Compression fracture of body of thoracic vertebra Brain aneurysm Surgical History History of left below knee amputation (10/14/24) History of foot surgery Social History Household Members: Family Housing: Apartment Are you a primary resident care coordinator to a significant other at home: No Do you presently have visiting nurse or other home services: No Alcohol intake: current Alcohol intake frequency: 0-2 drinks per day Comment: pt refusing alarms, encouraged to call for assistance. 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 Cognitive needs: Yes (Croches) Hearing needs: No Vision needs: Yes (Glasses) Questionnaire Thrive Questionnaire Date Thrive assessed: 12/25/24 I am a: Patient What is your living situation today?: I have a steady place to live Within the past 12 months, did the food you bought not last and you didn't have the money to get more?: Never true Within the past 12 months, did you worry whether your food would run out before you got money to buy more?: Never true Do you have trouble paying for medicines?: No Do you have trouble getting transportation to medical appointments?: No Do you have trouble paying your heating and electricity bill?: No Do you have trouble taking care of your child, family member or friend?: No Do you have trouble with day-to-day activities such as bathing, preparing meals, shopping, managing finances, etc.?: No Are you currently unemployed and looking for a job?: No Are you interested in more education?: No Please select the resources that you would like help with: None Currently or been in a relationship where the following occur: No concerns reported THRIVE Score: 0 JOLIE-7 AMB Questionnaire JOLIE-7 Date JOLIE - 7 assessed: 12/25/24 Source: Developed by Drs. Brent Garcia, Amaya Maddox, Diogenes Ely and colleagues, with an educational destiny from [employer]. Review of Systems Const Denies body aches, Denies chills, Denies fever(s), Denies headache(s) and Denies poor appetite Eyes Reports no additional complaints ENT Denies dizziness and Denies headache(s) Card Denies chest pain, Denies edema, Denies irregular heart rhythm, Denies lightheadedness and Denies dyspnea Resp Denies dyspnea GI Denies abdominal pain, Denies nausea and Denies vomiting Reports no additional complaints Musc Reports no additional complaints and Denies abnormal gait Skin/Breast Reports system reviewed and no additional complaints, except as documented Neuro Denies abnormal gait, Denies dizziness and Denies headache(s) Psych Reports no additional complaints Physical exam (Primary Care) Vital Signs: Last Vital Signs Temp 98.4 F 12/25/24 09:26 Pulse 78 12/25/24 09:26 BP 140/60 H 12/25/24 09:26 Pulse Ox 97 12/25/24 09:26 Oxygen Delivery Method Room Air 12/25/24 09:26 BMI result Body Mass Index 28.3 Tobacco/Smoking Status: Tobacco use Status Tobacco use date assessed 12/25/24 12/25/24 09:36 Patient Tobacco Use Status Current everyday Tobacco 12/25/24 09:30 Tobacco use type Cigarette 12/25/24 09:30 e-Cigarette/Vaping Use Never Used 12/25/24 09:30 Thrive Assessment: Date of Thrive Assessment Date Thrive assessed 12/25/24 12/25/24 09:36 Currently or been in a relationship where the following occur: No concerns reported Const General: cooperative, healthy appearing, comfortable and no acute distress Orientation/consciousness: patient oriented x3 HENMT Head: Yes normocephalic Ears: hearing grossly normal bilaterally General nose exam: Normal external nose present Eyes General: appearance normal, both eyes and all related structures Conjunctivae: conjunctivae normal Neck Neck: Yes full ROM and Yes no lymphadenopathy Resp Effort & Inspection: normal respiratory effort Auscultation: clear to auscultation bilaterally, no crackles, no rales, no rhonchi and no wheezes Cardio Rate: regular rate Rhythm: regular rhythm Skin Other: Wound of the left lower extremity well healed with small area of serous drainage. No evidence of infection at this time. Wound is nonerythematous and nontender General skin exam: no rashes or lesions noted Neuro General: patient oriented x3 Gait exam (Neuro): Normal gait present Extrem General: Yes normal to inspection, Yes full ROM and No edema Psych Affect: normal affect Attitude: cooperative Insight: Good insight present (Psych) Judgement: Good judgement present (Psych) Coding Level of Care Code Est Pt Level 3 (33513) Diagnoses Primary hypertension I10 Hypertension type: primary hypertension S/P BKA (below knee amputation) Z89.519 Tobacco abuse Z72.0 Assessment & Plan Assessment & Plan (1) Hypertension: Comment: restricted DOT Code(s): I10 - Essential (primary) hypertension Category: Medical Qualifiers: Hypertension type: primary hypertension Qualified Code(s): I10 - Essential (primary) hypertension Plan: Avoid salt intake and encourage healthy diet and regular exercise. Patient is asymptomatic at this time. Losartan was increased at his last visit to 50 mg. Blood pressure is elevated in the office today 144/94 he states he has not been taking the blood pressure at home however the VNA came last week had a normal blood pressure reading. He would like to hold off on increasing his losartan at this time. Plan to see patient back in 2 weeks for blood pressure check with nursing navigation and consider increase in losartan at that time. (2) S/P BKA (below knee amputation): Comment: Left Code(s): Z89.519 - Acquired absence of unspecified leg below knee Category: Surgical Plan: Patient is currently following with Dr. Barry and General surgery office for regular wound checks. Per last note no evidence of infection. Continue to follow with VNA as well for regular dressing changes. (3) Tobacco abuse: Code(s): Z72.0 - Tobacco use Category: Medical Plan: Smoking cigarettes and the use of tobacco can be harmful. We discussed the importance of stopping and options to aid in smoking cessation. Patient has cut back significantly on cigarette use however is still smoking daily. Declining nicotine replacement therapy or medication management at this time. Plan The plan for the wound infection includes continued monitoring of the healing process. The patient will follow up with Dr. Barry next week to assess the wound's progress. Additional gauze will be provided to ensure proper wound care at home. For hypertension management, the patient is advised to monitor blood pressure at home regularly. A follow-up appointment is scheduled to reassess blood pressure levels. If hypertension persists, an increase in losartan dosage may be considered. Regarding tobacco use, the patient is encouraged to continue efforts to quit smoking. No nicotine replacement therapy is desired by the patient at this time. This note was constructed using voice recognition software. While every effort has been made to ensure accuracy and stave block roller, still areas may have been included sometimes these areas may affect the content or meeting of the given symptoms. Total time spent caring for the patient today was 20 minutes. This includes time spent before the visit reviewing the chart, time spent during the visit, and time spent after the visit and documentation. Patient was informed and verbally consented to the use of an ambient scribe for clinic note documentation during this visit.
--- OUTSIDE RECORDS SUMMARY | 2024-12-25 09:42 | XMS_ITS | Clinical Summary ---
Author Organization [facility] Address [address] [place] [address] Care Team Providers Care Ship Construction Teacher Name Role Phone Unavailable Primary Care Provider [...]
--- OUTSIDE RECORDS SUMMARY | 2024-12-25 09:42 | XMS_ITS | Clinical Summary ---
Author Organization [facility] ity Address [address] [place] [address] Care Team Providers Care First Sampler Name Role Phone Unavailable Primary Care Provider [...] Vaccine (1 - 2023-2 5 season) 2024 Depression Screening 05/28/2024 Influenza Vaccine (#1) 2025 RSV Immunization Adult [...]
[2024-12-25 09:50] VITALS: BP 144/94
== END 2024-12-25 09:58 | disposition home or self-care (01) ==
LOC: HO.HMCH 09:24
DX: I10 Essential (primary) hypertension (principal); Z89.519 Acquired absence of unspecified leg below knee; Z72.0 Tobacco use

== ENCOUNTER 2025-01-07 11:07 | Outpatient (AMB) | payer OTHER, SELFPAY ==
--- NOTE | 2025-01-07 11:16 | A.OFFVIS_ITS ---
Vital Signs 01/07/25 11:18 Height 5 ft 5 in Weight 185 lb BMI 30.8 BP 166/84 H Blood Pressure Location Rt brachial Position Sitting Pulse 82 Intake Visit Reasons: wound check/amputation Intake Note: Patient here for follow-up of an infection of his left BKA stump. Patient c/o: one small area with yellowish discharge. Denies pain. Would like to get back to work. 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 He says that he does not have any pain. He says that the wound has healed almost completely now. [facility] Medical History Compression fracture of body of thoracic vertebra Brain aneurysm Surgical History History of left below knee amputation (10/14/24) History of foot surgery Social History Household Members: Family Housing: Apartment Are you a primary critical care nurse practitioner to a significant other at home: No Do you presently have visiting nurse or other home services: No Alcohol intake: current Alcohol intake frequency: 0-2 drinks per day Comment: pt refusing alarms, encouraged to call for assistance. 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 Cognitive needs: Yes (Croches) Hearing needs: No Vision needs: Yes (Glasses) Review of Systems Const Denies chills and Denies fever(s) Card Denies chest pain at rest Resp Denies cough GI Denies abdominal pain Physical Exam Vital Signs: Last Vital Signs Pulse 82 01/07/25 11:18 BP 166/84 H 01/07/25 11:18 BMI result Body Mass Index 30.8 Const Other: Using crutches General: comfortable and no acute distress Resp Effort & Inspection: normal respiratory effort Extrem Other: BKA stump almost completely healed; small area with superficial open wound, about 5 mm in size at the incision with no signs of infection Assessment & Plan Assessment & Plan (1) S/P BKA (below knee amputation): Comment: Left Code(s): Z89.519 - Acquired absence of unspecified leg below knee Category: Surgical Plan: He is doing very well after BKA. He still has a small superficial open wound on the stump. I told him that he may not be ready for a procedure at this time. I will see him again in the office in about 3 weeks. I have instructed him on good wound care for this. Coding Level of Care Code Global (96127) Diagnoses S/P BKA (below knee amputation) Z89.519
[2025-01-07 11:18] VITALS: BP 166/84; PULSE 82; BMI 30.8
== END 2025-01-07 11:19 | disposition home or self-care (01) ==
LOC: HO.HGS 11:08
PROVIDERS: Visit Provider Surgery
DX: Z89.519 Acquired absence of unspecified leg below knee (principal)
CPT/HCPCS: 99024

== ENCOUNTER 2025-01-28 10:37 | Outpatient (AMB) | payer OTHER, SELFPAY ==
--- NOTE | 2025-01-28 10:43 | A.OFFVIS_ITS ---
Vital Signs 01/28/25 10:48 Height 5 ft 5 in Weight 185 lb BMI 30.8 BP 173/81 H Blood Pressure Location Rt brachial Position Sitting Pulse 69 Intake Visit Reasons: 3wk wound check/amputation Intake Note: Patient here for follow-up of an infection of his left BKA stump. Patient c/o: no concerns. Reports wound has healed. Denies bleeding, oozing. Wants to get rid of crutches and hoping to get prosthesis. MARS: 01-07-2025 Top Edge Beveler Required: No Accompanied by: Self / Same As Patient Allergies No Known Allergies (No Known Allergies*) Allergy (Verified 01/28/25 10:47) Medication List - Last Reconciled 01/28/25 by Ramesh Barry MD [crutches hand fire extinguisher repairer As directed] losartan 50 mg PO DAILY tramadol 50 mg PO Q6H PRN HPI HPI 3wk wound check/amputation: Details: He is here for follow-up for an open wound on his BKA site on the left. He says that this is now well healed. He denies any drainage or open wound. He had his BKA done last Sep, 2024. [facility] Medical History (Updated 01/28/25 @ 10:58 by Ramesh Barry MD) BKA stump complication Compression fracture of body of thoracic vertebra Brain aneurysm Surgical History History of left below knee amputation (10/14/24) History of foot surgery Social History Household Members: Family Housing: Apartment Are you a primary career placement specialist to a significant other at home: No Do you presently have visiting nurse or other home services: No Alcohol intake: current Alcohol intake frequency: 0-2 drinks per day Comment: pt refusing alarms, encouraged to call for assistance. 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 Cognitive needs: Yes (Croches) Hearing needs: No Vision needs: Yes (Glasses) Review of Systems Const Denies chills and Denies fever(s) Card Denies chest pain Resp Denies cough Physical Exam Vital Signs: Last Vital Signs Pulse 69 01/28/25 10:48 BP 173/81 H 01/28/25 10:48 BMI result Body Mass Index 30.8 Const General: comfortable and no acute distress Resp Effort & Inspection: normal respiratory effort GI Palpation (GI): Soft to palpation Extrem Other: BKA site on the left is well healed, no open room, no redness, no discharge Assessment & Plan Assessment & Plan (1) BKA stump complication: Code(s): T87.9 - Unspecified complications of amputation stump Category: Medical Plan: The open wound is now healed on the BKA stump He says he is ready to see a senior research executive. I will refer him to [facility] for his prosthesis. We can see me in the office on a p.r.n. basis otherwise He eventually wants to get rid of his crutches and wants to be able to work again with the prostheses. Coding Level of Care Code Est Pt Level 3 (46695) Diagnoses BKA stump complication T87.9
[2025-01-28 10:48] VITALS: BP 173/81; PULSE 69; BMI 30.8
--- OUTSIDE RECORDS SUMMARY | 2025-01-28 12:23 | XMS_ITS | Clinical Summary ---
Author Organization [facility] Address [address] [place] [address] Care Team Providers Care Glove Cleaner Name Role Phone Unavailable Primary Care Provider [...]
--- OUTSIDE RECORDS SUMMARY | 2025-01-28 12:23 | XMS_ITS | Clinical Summary ---
Author Organization [facility] ity Address [address] [place] [address] Care Team Providers Care Tax Intern Name Role Phone Unavailable Primary Care Provider [...]
== END 2025-01-28 10:56 | disposition home or self-care (01) ==
LOC: HO.HGS 10:38
PROVIDERS: Visit Provider Surgery
DX: T87.9 Unspecified complications of amputation stump (principal)
CPT/HCPCS: 99213

== ENCOUNTER 2025-02-24 08:55 | Outpatient (AMB) | payer OTHER, SELFPAY ==
--- NOTE | 2025-02-24 09:00 | MHC.PC.OV ---
Vital Signs 02/24/25 09:02 02/24/25 09:15 Height 5 ft 5 in Weight 179 lb 14.355 oz BMI 29.9 BP 150/80 H 160/100 H Blood Pressure Location Lt brachial Lt brachial Position Sitting Sitting Pulse 86 Pulse Source Pulse Oximeter Temp 96.9 F Temp Source Temporal Artery Scan Pulse Oximetry (%) 97 Oxygen Delivery Method Room Air Intake Visit Reasons: 2 mnth f/u Intake Note: Patient is here to follow up on HTN. 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 Pt had left BKA in September of 2024] Tobacco use date assessed: 02/24/25 Dental Screening Dental Screen Date: 12/25/24 HPI 2 mnth f/u HPI Details 59-year-old male with past medical history of osteomyelitis, tobacco abuse, hypertension last seen 10/2024 coming in for follow up. In review of the notes, patient was seen by general surgery 01/2025 to recheck open wound of the BKA stump and patient was sent to Tank [facility] Operator Helper prosthesis. Patient tells us today he has a appointment with a prosthetic provider later today in his hoping to have a cast of the stump done today. He endorses a high salt diet including chips and salted peanuts which is likely contributing to his labile blood pressure. He does not monitor his blood pressure at home but blood pressure has been consistently elevated in specialists office. He continues to smoke cigarettes but is cutting back and is down to 5 cigarettes per day. [facility] Medical History BKA stump complication Compression fracture of body of thoracic vertebra Brain aneurysm Surgical History History of left below knee amputation (10/14/24) History of foot surgery Social History Household Members: Family Housing: Apartment Are you a primary youth care specialist to a significant other at home: No Do you presently have visiting nurse or other home services: No Alcohol intake: current Alcohol intake frequency: a few times a week Comment: pt refusing alarms, encouraged to call for assistance. Patient Tobacco Use Status: Current everyday Tobacco user Tobacco use type: Cigarette Cigarette Packs Per Day: 0.5 Cigarettes Per Day: 5 Years Smoked: 40 years e-Cigarette/Vaping Use: Never Used Second Hand Smoke Exposure: Yes service: No Current occupational status: employed Current occupation: [employer] Cognitive needs: Yes (Croches) Hearing needs: No Vision needs: Yes (Glasses) Questionnaire Thrive Questionnaire Date Thrive assessed: 08/21/24 I am a: Patient What is your living situation today?: I have a steady place to live Within the past 12 months, did the food you bought not last and you didn't have the money to get more?: Never true Within the past 12 months, did you worry whether your food would run out before you got money to buy more?: Never true Do you have trouble paying for medicines?: No Do you have trouble getting transportation to medical appointments?: No Do you have trouble paying your heating and electricity bill?: No Do you have trouble taking care of your child, family member or friend?: No Do you have trouble with day-to-day activities such as bathing, preparing meals, shopping, managing finances, etc.?: No Are you currently unemployed and looking for a job?: No Are you interested in more education?: No Please select the resources that you would like help with: None Currently or been in a relationship where the following occur: No concerns reported THRIVE Score: 0 JOLIE-7 AMB Questionnaire JOLIE-7 Date JOLIE - 7 assessed: 12/25/24 Source: Developed by Drs. Brent Garcia, Amaya Maddox, Diogenes Ely and colleagues, with an educational destiny from [employer]. Review of Systems Const Denies body aches, Denies chills, Denies fever(s), Denies headache(s) and Denies poor appetite Eyes Reports no additional complaints ENT Denies dysphagia, Denies dizziness, Denies headache(s) and Denies odynophagia Card Denies chest pain, Denies syncope, Denies edema, Denies irregular heart rhythm, Denies lightheadedness and Denies dyspnea Resp Denies cough and Denies dyspnea GI Denies abdominal pain, Denies constipation, Denies dysphagia, Denies diarrhea, Denies nausea, Denies odynophagia and Denies vomiting Reports no additional complaints Musc Reports no additional complaints and Denies abnormal gait Skin/Breast Reports system reviewed and no additional complaints, except as documented Neuro Denies abnormal gait, Denies dizziness, Denies syncope and Denies headache(s) Psych Reports no additional complaints Physical exam (Primary Care) Vital Signs: Last Vital Signs Temp 96.9 F 02/24/25 09:02 Pulse 86 02/24/25 09:02 BP 150/80 H 02/24/25 09:02 Pulse Ox 97 02/24/25 09:02 Oxygen Delivery Method Room Air 02/24/25 09:02 BMI result Body Mass Index 29.9 Tobacco/Smoking Status: Tobacco use Status Tobacco use date assessed 02/24/25 02/24/25 09:07 Patient Tobacco Use Status Current everyday Tobacco 02/24/25 09:07 Tobacco use type Cigarette 02/24/25 09:07 e-Cigarette/Vaping Use Never Used 02/24/25 09:07 Thrive Assessment: Date of Thrive Assessment Date Thrive assessed 08/21/24 02/24/25 09:07 Currently or been in a relationship where the following occur: No concerns reported Const General: cooperative, healthy appearing, comfortable and no acute distress Orientation/consciousness: patient oriented x3 HENMT Head: Yes normocephalic Ears: hearing grossly normal bilaterally General nose exam: Normal external nose present Eyes General: appearance normal, both eyes and all related structures Conjunctivae: conjunctivae normal Neck Neck: Yes full ROM and Yes no lymphadenopathy Resp Effort & Inspection: normal respiratory effort Auscultation: clear to auscultation bilaterally, no crackles, no rales, no rhonchi and no wheezes Cardio Rate: regular rate Rhythm: regular rhythm Skin General skin exam: no rashes or lesions noted Neuro General: patient oriented x3 Gait exam (Neuro): Normal gait present Extrem Other: Left BKA without areas of open skin or drainage and no evidence of infection General: Yes normal to inspection, Yes full ROM and No edema Psych Affect: normal affect Attitude: cooperative Insight: Good insight present (Psych) Judgement: Good judgement present (Psych) Coding Level of Care Code Est Pt Level 3 (56487) Diagnoses Primary hypertension I10 Hypertension type: primary hypertension S/P BKA (below knee amputation) Z89.519 Tobacco abuse Z72.0 Assessment & Plan Assessment & Plan (1) Hypertension: Comment: restricted DOT Code(s): I10 - Essential (primary) hypertension Category: Medical Qualifiers: Hypertension type: primary hypertension Qualified Code(s): I10 - Essential (primary) hypertension Plan: Reinforced dietary habits and strongly advised patient to avoid excessive salt intake. Re-educated patient about the effects of salt on the blood pressure. Recommend taking blood pressure at home and prescription for monitor was sent to the pharmacy today. Given uncontrolled blood pressure recommend increasing losartan to 100 mg and follow up in 2 months. Reviewed red flag symptoms with the patient and he is currently asymptomatic at this time. (2) S/P BKA (below knee amputation): Comment: Left Code(s): Z89.519 - Acquired absence of unspecified leg below knee Category: Surgical Plan: He is scheduled for prosthetic fitting later today and he will continue to follow general surgery as needed (3) Tobacco abuse: Code(s): Z72.0 - Tobacco use Category: Medical Plan: Smoking cigarettes and the use of tobacco can be harmful. We discussed the importance of stopping and options to aid in smoking cessation. Declining nicotine replacement therapy or medical management at this time. He continues to cut back on the quantity of cigarettes Plan This note was constructed using voice recognition software. While every effort has been made to ensure accuracy and special effects designer, still areas may have been included sometimes these areas may affect the content or meeting of the given symptoms. Total time spent caring for the patient today was 20 minutes. This includes time spent before the visit reviewing the chart, time spent during the visit, and time spent after the visit and documentation. Medications: New losartan 100 mg PO DAILY 90 tabs 0RF blood pressure kit-extra large As directed 1 ea 0RF Discontinued losartan Discontinued Reason: Patient no longer taking 50 mg PO DAILY 90 tabs 1RF
[2025-02-24 09:02] VITALS: BP 150/80; PULSE 86; TEMP 36.1; O2SAT 97; BMI 29.9
[2025-02-24 09:15] VITALS: BP 160/100
--- OUTSIDE RECORDS SUMMARY | 2025-02-24 09:30 | XMS_ITS | Clinical Summary ---
Author Organization [facility] ity Address [address] [place] [address] Care Team Providers Care Manager Professional Development Name Role Phone Unavailable Primary Care Provider [...] 11/15/2013 Zoster Vaccines (1 of 2) 11/15/2013 Depression Screening 05/28/2024 COVID-19 Vaccine (1 - 2023-2 5 season) 2025 Influenza Vaccine (#1) 2025 RSV Immunization Adult [...]
--- OUTSIDE RECORDS SUMMARY | 2025-02-24 09:30 | XMS_ITS | Clinical Summary ---
Author Organization [facility] Address [address] [place] [address] Care Team Providers Care Travel Med Surg Rn Name Role Phone Unavailable Primary Care Provider [...] COVID-19 Vaccine ( - 2023-2 5 season) 2025 RSV Vaccine 60 years and old er and Patients (1 - 1-dose 75+ series) 11/15/2038 Hepatitis B Vaccines Aged Out No long er eligible based on patient's age to complete this topic
== END 2025-02-24 09:21 | disposition home or self-care (01) ==
LOC: HO.HMCH 08:56
DX: I10 Essential (primary) hypertension (principal); Z89.519 Acquired absence of unspecified leg below knee; Z72.0 Tobacco use